=== PATIENT | female | born 1950 | race American Indian/Alaskan Native ===

== ENCOUNTER 2019-07-31 17:41 | Inpatient (IN) | payer MEDICARE ==
--- NOTE | 2019-07-31 20:13 | Emergency Department Report ---
ED General Adult HPI - General Chief complaint: Fall Stated complaint: (R) HIP PAIN Time Seen by Provider: 07/31/19 19:31 Source: patient, family, EMS ( EMS documentation not available at time of chart dictation ), RN notes reviewed Mode of arrival: Stretcher Limitations: Physical Limitation - History of Present Illness Initial comments: During the history and physical, I am chaperoned by nurse Lolly Garcia This is a 68-year-old female who is not known to this provider previously. Her primary care doctor is Dr. King. Her past medical history includes diabetes, GERD, hypertension, high cholesterol and arthritis. Patient presents to the ER after getting dizzy, and fall. She believes that she got dizzy at around 4:30 PM. She describes transient confusion, binocular blurry vision, not preceded by any painful event. After the fall, she landed on her right hip. She does not think that she hit her head or neck. She has sharp throbbing right sided hip pain, which increases with palpation and range of motion, and decreases with rest. She denies focal extremity weakness and or numbness at this time. Family thinks that the patient is slurring her speech when compared to baseline. -: Sudden Location: right, lower extremity Radiation: non-radiation Severity scale (0 -10): 0 Quality: aching Consistency: other Improves with: other Worsens with: other - Related Data Home Medications Medication Instructions Recorded Confirmed Last Taken Amitriptyline [Elavil] 10 mg PO QHS 11/13/13 11/13/13 11/12/13 20:00 Atenolol [Tenormin] 25 mg PO DAILY 11/13/13 11/13/13 11/12/13 20:00 diphenhydrAMINE [Benadryl] 25 mg PO QHS 11/13/13 11/13/13 11/08/13 20:00 hydroCHLOROthiazide 25 mg PO DAILY 11/13/13 11/13/13 11/12/13 20:00 [Hydrochlorothiazide] Previous Rx's Medication Instructions Recorded Last Taken Type traMADol [Ultram 50 MG tab] 50 mg PO Q6HR PRN #20 tablet 11/13/13 Unknown Rx Acetaminophen/Codeine [Tylenol #3] 1 tab PO Q6H PRN #10 tab 06/14/15 Unknown Rx Penicillin Vk [Veetids TAB] 500 mg PO Q6HR #28 tablet 06/14/15 Unknown Rx HYDROcodone/APAP 5-325 [[place] 1 - 2 each PO Q6HR PRN #14 tablet 11/11/15 Unknown Rx 5/325] levoFLOXacin [Levaquin] 750 mg PO QDAY #10 tablet 11/11/15 Unknown Rx Cyclobenzaprine [Flexeril] 10 mg PO TID PRN #15 tablet 05/16/16 Unknown Rx Allergies Allergy/AdvReac Type Severity Reaction Status Date / Time aspirin Allergy Rash Verified 11/13/13 18:16 lactase [From Dairy Aid] Allergy Unknown Verified 11/13/13 18:16 NSAIDS (Non-Steroidal Allergy Rash Verified 11/13/13 18:16 Anti-Inflamma ED Review of Systems ROS: Stated complaint: (R) HIP PAIN Other details as noted in HPI Constitutional: malaise. denies: fever Eyes: vision change. denies: eye discharge ENT: denies: throat pain, congestion Respiratory: denies: cough Cardiovascular: syncope, other (syncope versus near syncope) Gastrointestinal: denies: nausea, vomiting Genitourinary: denies: dysuria Musculoskeletal: arthralgia, myalgia Skin: denies: lesions Neurological: weakness, confusion Hematological/Lymphatic: denies: easy bleeding ED Past Medical Hx - Past Medical History Previous Medical History?: Yes Hx Hypertension: Yes Hx Diabetes: Yes Hx GERD: Yes Additional medical history: high cholesterol, arthritis - Surgical History Past Surgical History?: Yes Additional Surgical History: Bilateral tubal ligation. left knee - Social History Smoking Status: Never Smoker Substance Use Type: None - Medications Home Medications: Home Medications Medication Instructions Recorded Confirmed Last Taken Type Amitriptyline [Elavil] 10 mg PO QHS 11/13/13 11/13/13 11/12/13 20:00 History Atenolol [Tenormin] 25 mg PO DAILY 11/13/13 11/13/13 11/12/13 20:00 History diphenhydrAMINE [Benadryl] 25 mg PO QHS 11/13/13 11/13/13 11/08/13 20:00 History hydroCHLOROthiazide 25 mg PO DAILY 11/13/13 11/13/13 11/12/13 20:00 History [Hydrochlorothiazide] traMADol [Ultram 50 MG tab] 50 mg PO Q6HR PRN #20 tablet 11/13/13 Unknown Rx Acetaminophen/Codeine [Tylenol #3] 1 tab PO Q6H PRN #10 tab 06/14/15 Unknown Rx Penicillin Vk [Veetids TAB] 500 mg PO Q6HR #28 tablet 06/14/15 Unknown Rx HYDROcodone/APAP 5-325 [[place] 1 - 2 each PO Q6HR PRN #14 tablet 11/11/15 Unknown Rx 5/325] levoFLOXacin [Levaquin] 750 mg PO QDAY #10 tablet 11/11/15 Unknown Rx Cyclobenzaprine [Flexeril] 10 mg PO TID PRN #15 tablet 05/16/16 Unknown Rx ED Physical Exam - General Limitations: Language Barrier General appearance: alert, in no apparent distress, anxious, in distress - Head Head exam: Present: atraumatic, normocephalic - Eye Eye exam: Present: normal appearance, PERRL, EOMI, other (visual acuity intact to finger counting, color perception, reading at a close distance). Absent: nystagmus - ENT ENT exam: Present: normal exam, normal orophraynx, mucous membranes moist, normal external ear exam - Neck Neck exam: Present: normal inspection, full ROM. Absent: tenderness, meningismus - Respiratory Respiratory exam: Present: normal lung sounds bilaterally. Absent: respiratory distress - Cardiovascular Cardiovascular Exam: Present: regular rate, normal rhythm, normal heart sounds. Absent: bradycardia, tachycardia, irregular rhythm, systolic murmur, diastolic murmur, rubs, gallop - GI/Abdominal GI/Abdominal exam: Present: soft. Absent: distended, tenderness, guarding, rebound, rigid, pulsatile mass - Extremities Exam Extremities exam: Present: normal inspection, tenderness (there is right sided hip tenderness and proximal femur tenderness.), other (2+ pulses noted in the bilateral upper, lower extremities. There is no long bone tenderness. Musculoskeletal compartments are soft. The pelvis is stable.) - Back Exam Back exam: Present: normal inspection. Absent: tenderness, CVA tenderness (R), CVA tenderness (L), paraspinal tenderness, vertebral tenderness - Neurological Exam Neurological exam: Present: alert (there is past pointing noted in the bilateral upper extremities. No visual field cuts are noted.), oriented X3 (there is no pronator drift. There is normal left-sided yrxs-nt-xrmf. Patient cannot perfo rm right-sided xtbd-ku-xits secondary to pain.), other (there is no facial droop. The tongue is midline. Extraocular movements are intact bilaterally. Patient speaking in full complete sentences. Shoulder shrug is intact bilaterally. Hearing is grossly intact bilaterally. Visual acuity intact to finger counting and color perception at a close distance. 5/5 strength 4 extremities. Sensation intact to light touch in 4 extremities.) - Psychiatric Psychiatric exam: Present: normal affect, normal mood - Skin Skin exam: Present: warm, dry, intact, normal color. Absent: rash ED Course Vital Signs 07/31/19 07/31/19 07/31/19 18:35 18:46 18:52 Temperature 98 F Pulse Rate 81 Respiratory 25 H 25 H Rate Blood Pressure 182/88 O2 Sat by Pulse 96 96 96 Oximetry ED Medical Decision Making - Lab Data Result diagrams: 07/31/19 20:57 07/31/19 20:57 Vital Signs 07/31/19 07/31/19 07/31/19 18:35 18:46 18:52 Temperature 98 F Pulse Rate 81 Respiratory 25 H 25 H Rate Blood Pressure 182/88 O2 Sat by Pulse 96 96 96 Oximetry Lab Results 07/31/19 07/31/19 07/31/19 Range/Units 20:57 20:57 20:57 WBC 10.2 (4.5-11.0) K/mm3 RBC 4.82 (3.65-5.03) M/mm3 Hgb 12.7 (10.1-14.3) gm/dl Hct 39.8 (30.3-42.9) % MCV 83 (79-97) fl MCH 26 L (28-32) pg MCHC 32 (30-34) % RDW 14.8 (13.2-15.2) % Plt Count 200 (140-440) K/mm3 PT 12.8 (12.2-14.9) Sec. INR 0.97 (0.87-1.13) Thrombin Time 16.1 (15.1-19.6) Sec. Sodium 137 (137-145) mmol/L Potassium 4.1 (3.6-5.0) mmol/L Chloride 99.9 (98-107) mmol/L Carbon Dioxide 23 (22-30) mmol/L Anion Gap 18 mmol/L BUN 19 H (7-17) mg/dL Creatinine 0.8 (0.7-1.2) mg/dL Estimated GFR > 60 ml/min BUN/Creatinine Ratio 24 % Glucose 109 H (65-100) mg/dL POC Glucose (70-105) Calcium 9.4 (8.4-10.2) mg/dL Magnesium (1.7-2.3) mg/dL Total Bilirubin 0.30 (0.1-1.2) mg/dL AST 19 (5-40) units/L ALT 19 (7-56) units/L Alkaline Phosphatase 72 (35-129) units/L Total Creatine Kinase (30-135) units/L Troponin T < 0.010 (0.00-0.029) ng/mL Total Protein 7.2 (6.3-8.2) g/dL Albumin 4.3 (3.9-5) g/dL Albumin/Globulin Ratio 1.5 % TSH (0.270-4.200) mlU/mL Plasma/Serum Alcohol (0-0.07) % 07/31/19 07/31/19 07/31/19 Range/Units 20:57 20:57 20:57 WBC (4.5-11.0) K/mm3 RBC (3.65-5.03) M/mm3 Hgb (10.1-14.3) gm/dl Hct (30.3-42.9) % MCV (79-97) fl MCH (28-32) pg MCHC (30-34) % RDW (13.2-15.2) % Plt Count (140-440) K/mm3 PT (12.2-14.9) Sec. INR (0.87-1.13) Thrombin Time (15.1-19.6) Sec. Sodium (137-145) mmol/L Potassium (3.6-5.0) mmol/L Chloride (98-107) mmol/L Carbon Dioxide (22-30) mmol/L Anion Gap mmol/L BUN (7-17) mg/dL Creatinine (0.7-1.2) mg/dL Estimated GFR ml/min BUN/Creatinine Ratio % Glucose (65-100) mg/dL POC Glucose (70-105) Calcium (8.4-10.2) mg/dL Magnesium 1.80 (1.7-2.3) mg/dL Total Bilirubin (0.1-1.2) mg/dL AST (5-40) units/L ALT (7-56) units/L Alkaline Phosphatase (35-129) units/L Total Creatine Kinase 57 (30-135) units/L Troponin T (0.00-0.029) ng/mL Total Protein (6.3-8.2) g/dL Albumin (3.9-5) g/dL Albumin/Globulin Ratio % TSH 0.653 (0.270-4.200) mlU/mL Plasma/Serum Alcohol < 0.01 (0-0.07) % 07/31/19 Range/Units 22:11 WBC (4.5-11.0) K/mm3 RBC (3.65-5.03) M/mm3 Hgb (10.1-14.3) gm/dl Hct (30.3-42.9) % MCV (79-97) fl MCH (28-32) pg MCHC (30-34) % RDW (13.2-15.2) % Plt Count (140-440) K/mm3 PT (12.2-14.9) Sec. INR (0.87-1.13) Thrombin Time (15.1-19.6) Sec. Sodium (137-145) mmol/L Potassium (3.6-5.0) mmol/L Chloride (98-107) mmol/L Carbon Dioxide (22-30) mmol/L Anion Gap mmol/L BUN (7-17) mg/dL Creatinine (0.7-1.2) mg/dL Estimated GFR ml/min BUN/Creatinine Ratio % Glucose (65-100) mg/dL POC Glucose 91 (70-105) Calcium (8.4-10.2) mg/dL Magnesium (1.7-2.3) mg/dL Total Bilirubin (0.1-1.2) mg/dL AST (5-40) units/L ALT (7-56) units/L Alkaline Phosphatase (35-129) units/L Total Creatine Kinase (30-135) units/L Troponin T (0.00-0.029) ng/mL Total Protein (6.3-8.2) g/dL Albumin (3.9-5) g/dL Albumin/Globulin Ratio % TSH (0.270-4.200) mlU/mL Plasma/Serum Alcohol (0-0.07) % - EKG Data -: EKG Interpreted by Me EKG shows normal: sinus rhythm Rate: normal - EKG Data When compared to previous EKG there are: previous EKG unavailable 07/31/19 22:37 The EKG shows a sinus rhythm, 78 bpm, QTC is prolonged, there is a normal axis, there is an incomplete right bundle branch block, there is low voltage, the EKG is abnormal, the EKG is not consistent with STEMI - Radiology Data Radiology results: report reviewed, image reviewed Noncontrast CT scan of the brain is negative for acute disease. X-ray the chest, pelvis, right femur negative for acute disease - Medical Decision Making Differential diagnosis, including but not limited to: Orthostasis, vagal event, structural cardiac disease, transient ischemic attack, stroke, pneumonia, urinary tract infection, pelvic fracture, contusion, dislocation Assessment and plan: 68-year-old female with complaint of dizziness, syncope versus presyncope versus TIA, with right-sided hip pain. CT scan brain, cervical spine negative for acute disease. No fractures or dislocations noted. X-ray the chest unremarkable. Patient seen and evaluated by myself and stroke neurology, and was deemed not to be a TPA candidate. Her exam at this point time is not suggestive of a large vessel occlusion. Urinalysis is pending at this time, patient given Plavix, and she'll be admitted to the medical service for further evaluation and management. The case was presented to the Hospital physician, Dr. Malave, who has accepted the patient to his service. We discussed plan of care for admission with the family, who verb alizes understanding and whom are amenable to this plan of care. Critical care attestation.: If time is entered above; I have spent that time in minutes in the direct care of this critically ill patient, excluding procedure time. ED Disposition Clinical Impression: Stroke, Right hip pain, Fall Disposition: OP ADMIT IP TO THIS HOSP Is pt being admited?: Yes Condition: Good Referrals: PRIMARY CARE, [Primary Care Provider] - 3-5 Days
--- NOTE | 2019-07-31 21:05 | Cat Scan Report ---
CT head/brain wo con INDICATION / CLINICAL INFORMATION: 68 years Female; MAIN: Stroke symptoms-CODE STROKE!!! Call [phone]. TECHNIQUE: Routine CT head without contrast. All CT scans at this location are performed using CT dos e reduction for ALARA by means of automated exposure control. COMPARISON: None. FINDINGS: BRAIN / INTRACRANIAL CONTENTS: There may be a small lacunar infarct in the anterior gangliocapsular r egion on the vxyjv-vtd-npfmjulsnlzcl without diffusion imaging by MRI. Otherwise, no acute hemorrhage, mass effect, midline shift, hydrocephalus, or acute, large territori al infarct. No chronic infarct or atrophy appreciated. There are mild areas of decreased attenuation in the white matter of the cerebral hemispheres. These are nonspecific findings and may be related to microangiopathy (hypertension, diabetes, atheroscleros is), given the patient's age. CRANIOCERVICAL JUNCTION: No significant abnormality. ORBITS: No significant abnormality of visualized orbits. SINUSES / MASTOIDS: No significant abnormality the visualized paranasal sinuses or mastoid air cells. ADDITIONAL FINDINGS: None. IMPRESSION: 1. No focal mass, hemorrhage, hydrocephalus, or acute, large territorial infarct. This exam was performed as part of a code stroke protocol. The exam was completed on 07/31/2019 7:52 PM. The exam was reviewed at 7:[address] Falcon was notified at 7:39 PM. Signer Name: Mike Garcia MD, III Signed: 07/31/2019 9:00 PM Workstation Name: [facility] [id number]
--- NOTE | 2019-07-31 21:07 | Cat Scan Report ---
CT cervical spine wo con INDICATION / CLINICAL INFORMATION: 68 years Female; fall, confusion. TECHNIQUE: Axial CT images of the cervical spine were obtained. Sagittal and coronal reformatted images were pr oduced. All CT scans at this location are performed using CT dose reduction for ALARA by means of aut omated exposure control. COMPARISON: None available. FINDINGS: POST-SURGICAL CHANGES: None. ALIGNMENT: Normal cervical lordosis seen without significant scoliosis. VERTEBRAE: No signs of fracture. Vertebral bodies are grossly normal in height throughout. Moderate facet hypertrophy seen on the left at C4-5. Overall, there is no significant osseous foramin al narrowing. INTRAVERTEBRAL DISCS:Disc spaces are fairly well-maintained throughout without significant canal sten osis. Mild disc disease seen at various levels with no dominant herniation appreciated. PARASPINAL SOFT TISSUES: No significant abnormality. ADDITIONAL FINDINGS: None. IMPRESSION: 1. No signs of acute bony trauma to the cervical spine. Signer Name: Mike Garcia MD, III Signed: 07/31/2019 9:03 PM Workstation Name: [id number]
[2019-07-31 21:08] LABS: Hematocrit 39.8 % (30.3-42.9); Hemoglobin 12.7 gm/dl (10.1-14.3); Mean Corpuscular HGB Conc 32 % (30-34); Mean Corpuscular Volume 83 fl (79-97); Platelet Count 200 K/mm3 (140-440); Red Blood Count 4.82 M/mm3 (3.65-5.03); Red Cell Distribution Width 14.8 % (13.2-15.2)
--- NOTE | 2019-07-31 21:12 | Emergency Department Report ---
ED Neuro Deficit HPI - General Chief Complaint: Fall Stated Complaint: (R) HIP PAIN Time Seen by Provider: 07/31/19 19:31 Source: patient, family, EMS Mode of arrival: Stretcher Limitations: Language Barrier - History of Present Illness Initial Comments: [facility] Date of Service:07/31/2019 20:21:51 Impression: RO Acute Ischemic Stroke Comments: Episode of a fall after filling dizzy. The son feels that her speech is a bit slurred. R/o stroke. out of window for tpa and mild non disabling symptoms at this time. Discussed with son, agrees. Mechanism of Stroke: Not Clear Metrics: Last Known Well: 07/31/2019 16:30:00 [employer] Notification Time: 07/31/2019 20:21:07 Arrival Time: 07/31/2019 17:41:00 Stamp Time: 07/31/2019 20:21:51 Time First Login Attempt: 07/31/2019 20:25:20 Video Start Time: 07/31/2019 20:25:20 Symptoms: dizziness and fall. NIHSS Start Assessment Time: 07/31/2019 20:26:33 Patient is not a candidate for tPA. Patient was not deemed candidate for tPA thrombolytics because of Last Well Known Above 4.5 Hours. Video End Time: 07/31/2019 20:59:44 Advanced imaging was not obtained as the presentation was not suggestive of Large Vessel Occlusive Disease. ER Physician notified of the decision on thrombolytics management on 07/31/2019 21:00:00 Our recommendations are outlined below. Recommendations: Activate Stroke Protocol Admission/Order Set Stroke/Telemetry Floor Neuro Checks Bedside Swallow Eval DVT Prophylaxis IV Fluids, Normal Saline Head of Bed Below 30 Degrees Euglycemia and Avoid Hyperthermia (PRN Acetaminophen) Initiate Aspirin Disposition: admit for further workup Sign Out: Discussed with Emergency Department Provider History of Present Illness: Patient is a 68 year old Female. Patient was brought by EMS for symptoms of dizziness and fall. The patient was in the kitchen went to the living room and then fell. She described that she fell dizzy. Denies any weakness, numbness, vision loss. However, she does have right leg pain, from the call. She has been feeling dizzy before and intermittently CT head was reviewed, no acute findings per rad read. Examination: 1A: Level of Consciousness - Alert; keenly responsive + 0 1B: Ask Month and Age - Both Questions Right + 0 1C: Blink Eyes & Squeeze Hands - Performs Both Tasks + 0 2: Test Horizontal Extraocular Movements - Normal + 0 3: Test Visual Alva - No Visual Loss + 0 4: Test Facial Palsy (Use Grimace if Obtunded) - Normal symmetry + 0 5A: Test Left Arm Motor Drift - No Drift for 10 Seconds + 0 5B: Test Right Arm Motor Drift - No Drift for 10 Seconds + 0 6A: Test Left Leg Motor Drift - No Drift for 5 Seconds + 0 6B: Test Right Leg Motor Drift - Drift, but doesn't hit bed + 1 7: Test Limb Ataxia (FNF/Heel-Campos) - No Ataxia + 0 8: Test Sensation - Normal; No sensory loss + 0 9: Test Language/Aphasia - Normal; No aphasia + 0 10: Test Dysarthria - Mild-Moderate Dysarthria: Slurring but can be understood + 1 11: Test Extinction/Inattention - No abnormality + 0 NIHSS Score: 2 Patient was informed the Neurology Consult would happen via TeleHealth consult by way of interactive audio and video telecommunications and consented to receiving care in this manner. Due to the immediate potential for life-threatening deterioration due to underlying acute neurologic illness, I spent 35 minutes providing critical care. This time includes time for face to face visit via telemedicine, review of medical records, imaging studies and discussion of findings with providers, the patient and/or family. Dr Ta Ge [facility] - Related Data Home Medications: Home Medications Medication Instructions Recorded Confirmed Last Taken Amitriptyline [Elavil] 10 mg PO QHS 11/13/13 11/13/13 11/12/13 20:00 Atenolol [Tenormin] 25 mg PO DAILY 11/13/13 11/13/13 11/12/13 20:00 diphenhydrAMINE [Benadryl] 25 mg PO QHS 11/13/13 11/13/13 11/08/13 20:00 hydroCHLOROthiazide 25 mg PO DAILY 11/13/13 11/13/13 11/12/13 20:00 [Hydrochlorothiazide] Previous Rx's Medication Instructions Recorded Last Taken Type traMADol [Ultram 50 MG tab] 50 mg PO Q6HR PRN #20 tablet 11/13/13 Unknown Rx Acetaminophen/Codeine [Tylenol #3] 1 tab PO Q6H PRN #10 tab 06/14/15 Unknown Rx Penicillin Vk [Veetids TAB] 500 mg PO Q6HR #28 tablet 06/14/15 Unknown Rx HYDROcodone/APAP 5-325 [[place] 1 - 2 each PO Q6HR PRN #14 tablet 11/11/15 Unknown Rx 5/325] levoFLOXacin [Levaquin] 750 mg PO QDAY #10 tablet 11/11/15 Unknown Rx Cyclobenzaprine [Flexeril] 10 mg PO TID PRN #15 tablet 05/16/16 Unknown Rx Allergies/Adverse Reactions: Allergies Allergy/AdvReac Type Severity Reaction Status Date / Time aspirin Allergy Rash Verified 11/13/13 18:16 lactase [From Dairy Aid] Allergy Unknown Verified 11/13/13 18:16 NSAIDS (Non-Steroidal Allergy Rash Verified 11/13/13 18:16 Anti-Inflamma ED Review of Systems ROS: Stated complaint: (R) HIP PAIN Other details as noted in HPI ED Past Medical Hx - Past Medical History Previous Medical History?: Yes Hx Hypertension: Yes Hx Diabetes: Yes Hx GERD: Yes Additional medical history: high cholesterol, arthritis - Surgical History Past Surgical History?: Yes Additional Surgical History: Bilateral tubal ligation. left knee - Social History Smoking Status: Never Smoker Substance Use Type: None - Medications Home Medications: Home Medications Medication Instructions Recorded Confirmed Last Taken Type Amitriptyline [Elavil] 10 mg PO QHS 11/13/13 11/13/13 11/12/13 20:00 History Atenolol [Tenormin] 25 mg PO DAILY 11/13/13 11/13/13 11/12/13 20:00 History diphenhydrAMINE [Benadryl] 25 mg PO QHS 11/13/13 11/13/13 11/08/13 20:00 History hydroCHLOROthiazide 25 mg PO DAILY 11/13/13 11/13/13 11/12/13 20:00 History [Hydrochlorothiazide] traMADol [Ultram 50 MG tab] 50 mg PO Q6HR PRN #20 tablet 11/13/13 Unknown Rx Acetaminophen/Codeine [Tylenol #3] 1 tab PO Q6H PRN #10 tab 06/14/15 Unknown Rx Penicillin Vk [Veetids TAB] 500 mg PO Q6HR #28 tablet 06/14/15 Unknown Rx HYDROcodone/APAP 5-325 [[place] 1 - 2 each PO Q6HR PRN #14 tablet 11/11/15 Unknown Rx 5/325] levoFLOXacin [Levaquin] 750 mg PO QDAY #10 tablet 11/11/15 Unknown Rx Cyclobenzaprine [Flexeril] 10 mg PO TID PRN #15 tablet 05/16/16 Unknown Rx ED Neuro Physical Exam - General Limitations: Language Barrier Suspected Stroke: Yes - NIHSS Assessment Interval: Baseline 1a. Level of Consciousness: alert/keenly responsive 1b. LOC Questions: answers both correctly 1c. LOC Commands: performs tasks correctly 2. Best Gaze: normal 3. Visual: no visual loss 4. Facial Palsy: normal symmetrical movement 5b. Motor Arm Right: no drift 5a. Motor Arm Left: no drift 6a. Motor Leg Left: no drift 6b. Motor Leg Right: drift 7. Limb Ataxia: absent 8. Sensory: normal 9. Best Language: no aphasia 10. Dysarthria: mild/moderate dysarthria 11. Extinction/Inattention: no abnormality (right leg wekaness, secondary to pain. slurred speech per son) Total Score: 2 Stroke Severity: Minor Stroke ED Course Vital Signs 07/31/19 07/31/19 07/31/19 18:35 18:46 18:52 Temperature 98 F Pulse Rate 81 Respiratory 25 H 25 H Rate Blood Pressure 182/88 O2 Sat by Pulse 96 96 96 Oximetry - Lab Data Result diagrams: 07/31/19 20:57 Lab Results 07/31/19 Range/Units 20:57 WBC 10.2 (4.5-11.0) K/mm3 RBC 4.82 (3.65-5.03) M/mm3 Hgb 12.7 (10.1-14.3) gm/dl Hct 39.8 (30.3-42.9) % MCV 83 (79-97) fl MCH 26 L (28-32) pg MCHC 32 (30-34) % RDW 14.8 (13.2-15.2) % Plt Count 200 (140-440) K/mm3 Critical care attestation.: If time is entered above; I have spent that time in minutes in the direct care of this critically ill patient, excluding procedure time. ED Disposition Clinical Impression: Stroke Disposition: DC-[id number] OP ADMIT IP TO THIS HOSP Is pt being admited?: Yes Condition: Stable Referrals: PRIMARY CARE, [Primary Care Provider] - 3-5 Days
[2019-07-31 21:16] LABS: INR 0.97 (0.87-1.13)
[2019-07-31 21:25] LABS: Alanine Aminotransferase 19 units/L (7-56); Albumin 4.3 g/dL (3.9-5); BUN/Creatinine Ratio 24; Blood Urea Nitrogen 19 mg/dL (7-17); Calcium 9.4 mg/dL (8.4-10.2); Hemolysis Index 5
[2019-07-31 21:32] LABS: Thrombin Time 16.1 Sec. (15.1-19.6)
--- NOTE | 2019-07-31 22:24 | XRay Report ---
CHEST 1 VIEW INDICATION / CLINICAL INFORMATION: near syncope vs tia. COMPARISON: None available. FINDINGS: SUPPORT DEVICES: None. HEART / MEDIASTINUM: No significant abnormality. LUNGS / PLEURA: No significant pulmonary or pleural abnormality.. No pneumothorax. ADDITIONAL FINDINGS: No significant additional findings. IMPRESSION: 1. No acute findings. Signer Name: David Kolb MD Signed: 07/31/2019 10:20 PM Workstation Name: [id number]
[2019-07-31] MEDS ORDERED: MORPHINE 4 MG/1 ML INJ IV ONE ×2 (22:27→23:12)
[2019-07-31] MEDS ORDERED: CLOPIDOGREL 75 MG TAB PO ONE (22:27)
--- NOTE | 2019-07-31 22:27 | XRay Report ---
PELVIS ONE VIEW INDICATION / CLINICAL INFORMATION: fall hip pain COMPARISON: None available. FINDINGS: BONES / JOINT(S): No acute fracture or subluxation. There is degenerative change in the hips left gre ater than right. SOFT TISSUES: No significant abnormality. ADDITIONAL FINDINGS: None. Signer Name: David Kolb MD Signed: 07/31/2019 10:22 PM Workstation Name: [id number]
--- NOTE | 2019-07-31 22:30 | XRay Report ---
RIGHT FEMUR 2 VIEWS INDICATION / CLINICAL INFORMATION: traumatic leg pain COMPARISON: None available. FINDINGS: BONES / JOINT(S): No acute fracture or subluxation. There is degenerative change in the right hip and in the right knee. SOFT TISSUES: No significant abnormality. ADDITIONAL FINDINGS: None. Signer Name: David Kolb MD Signed: 07/31/2019 10:26 PM Workstation Name: [id number]
[2019-07-31] MEDS ORDERED: hydrALAZINE 20 MG/1 ML INJ IV ONE (22:43)
[2019-07-31] MEDS ORDERED: MAGNESIUM HYDROXIDE (MOM) ORAL LIQD UDC PO PRN (22:43)
[2019-07-31] MEDS ORDERED: MORPHINE 4 MG/1 ML INJ IV PRN (22:43)
[2019-07-31] MEDS ORDERED: ONDANSETRON 4 MG/2 ML INJ IV PRN (22:43)
[2019-07-31] MEDS ORDERED: PROMETHAZINE 25 MG RECT SUPP PR PRN (22:43)
[2019-07-31] MEDS ORDERED: METOCLOPRAMIDE 10 MG TAB PO PRN (22:43)
[2019-07-31] MEDS ORDERED: ACETAMINOPHEN 325 MG TAB PO PRN (22:43)
--- NOTE | 2019-07-31 23:00 | History and Physical Report ---
History of Present Illness Date of examination: 07/31/19 Date of admission: Chief complaint: Slurred speech and extremity weakness History of present illness: 68-year-old female with known history of diabetes mellitus, hypertension, hyperlipidemia brought into the emergency room today having had an episode of slurred speech at home and also having a fall. She suddenly felt dizzy and fell backwards hitting the back of her head. She denies any loss of consciousness and denies any blurry vision. She has been having right hip pain since the fall. She denies any chest pain or shortness of breath, no nausea vomiting, no fever or chills. Patient was evaluated in the emergency room a CT scan of the brain was negative. Patient was evaluated by telemetry neurology and she was not a candidate for TPA. She was started on oral Plavix and was being admitted to be evaluated for CVA. Past History Past Medical History: diabetes, hypertension, hyperlipidemia Past Surgical History: Other (Bilateral tubal ligation in the past) Social history: no significant social history Family history: CAD, hypertension Medications and Allergies Allergies Allergy/AdvReac Type Severity Reaction Status Date / Time aspirin Allergy Rash Verified 11/13/13 18:16 lactase [From Dairy Aid] Allergy Unknown Verified 11/13/13 18:16 NSAIDS (Non-Steroidal Allergy Rash Verified 11/13/13 18:16 Anti-Inflamma Home Medications Medication Instructions Recorded Confirmed Last Taken Type Amitriptyline [Elavil] 10 mg PO QHS 11/13/13 11/13/13 11/12/13 20:00 History Atenolol [Tenormin] 25 mg PO DAILY 11/13/13 11/13/13 11/12/13 20:00 History diphenhydrAMINE [Benadryl] 25 mg PO QHS 11/13/13 11/13/13 11/08/13 20:00 History hydroCHLOROthiazide 25 mg PO DAILY 11/13/13 11/13/13 11/12/13 20:00 History [Hydrochlorothiazide] traMADol [Ultram 50 MG tab] 50 mg PO Q6HR PRN #20 tablet 11/13/13 Unknown Rx Acetaminophen/Codeine [Tylenol #3] 1 tab PO Q6H PRN #10 tab 06/14/15 Unknown Rx Penicillin Vk [Veetids TAB] 500 mg PO Q6HR #28 tablet 06/14/15 Unknown Rx HYDROcodone/APAP 5-325 [[place] 1 - 2 each PO Q6HR PRN #14 tablet 11/11/15 Unknown Rx 5/325] levoFLOXacin [Levaquin] 750 mg PO QDAY #10 tablet 11/11/15 Unknown Rx Cyclobenzaprine [Flexeril] 10 mg PO TID PRN #15 tablet 05/16/16 Unknown Rx Review of Systems Neurological: change in speech Exam - Constitutional Vitals: Temp Pulse Resp BP Pulse Ox 98 F 81 25 H 182/88 96 07/31/19 18:46 07/31/19 18:46 07/31/19 18:52 07/31/19 18:46 07/31/19 18:52 - EENT Eyes: Present: PERRL, EOM intact ENT: hearing intact, clear oral mucosa, dentition normal - Neck Neck: Present: supple, normal ROM - Respiratory Respiratory: bilateral: CTA - Cardiovascular Rhythm: regular Heart Sounds: Present: S1 & S2 - Extremities Extremities: no ischemia, No edema Peripheral Pulses: within normal limits - Abdominal General gastrointestinal: Present: soft, non-tender, non-distended - Integumentary Integumentary: Present: clear, warm, dry - Musculoskeletal Musculoskeletal: strength equal bilaterally, other - Psychiatric Psychiatric: appropriate mood/affect, intact judgment & insight - Neurologic Neurologic: CNII-XII intact, moves all extremities (Right hip pain) Results - Labs CBC & Chem 7: 07/31/19 20:57 07/31/19 20:57 Labs: Abnormal lab results 07/31/19 07/31/19 Range/Units 20:57 20:57 MCH 26 L (28-32) pg BUN 19 H (7-17) mg/dL Glucose 109 H (65-100) mg/dL Assessment and Plan - Patient Problems (1) Stroke Current Visit: Yes Status: Acute Plan to address problem: Patient admitted with slurred speech today. Will monitor neurological status closely. Patient will be placed on daily Plavix. Was scheduled for carotid Doppler and MRI of the brain. Will request neurology consult in the a.m. (2) Fall Current Visit: Yes Status: Acute Plan to address problem: Will place on fall precautions. (3) Right hip pain Current Visit: Yes Status: Acute Plan to address problem: Patient has had pain on the right hip status post fall today. X-ray of the right he still pending aside during this dictation. We will place on PRN analgesic medication. (4) Diabetes mellitus Current Visit: Yes Status: Acute Plan to address problem: We will monitor Accu-Cheks and continue her routine home medications. (5) DVT prophylaxis Current Visit: Yes Status: Acute Plan to address problem: Patient placed on subcutaneous heparin (6) Full code status Current Visit: Yes Status: Acute
[2019-07-31] MEDS ORDERED: DEXTROSE 50% IN WATER (25GM) 50 ML SYRINGE IV PRN (23:16)
[2019-07-31] MEDS ORDERED: MORPHINE 4 MG/1 ML INJ ONE (23:21)
[2019-07-31] MEDS ORDERED: hydrALAZINE 20 MG/1 ML INJ ONE (23:44)
[2019-08-01 03:14] LABS: Bilirubin,Urine NEG (Negative); Blood,Urine NEG (Negative); Color,Urine Straw (Yellow); Mucus,Urine FEW /HPF; Protein,Urine <15 mg/dL mg/dL (Negative); Urobilinogen,Urine < 2.0 mg/dL (<2.0)
[2019-08-01] MEDS: INSULIN REGULAR, HUMAN 100 UNITS/1 ML SUB-Q SCH ×4 (08:00→21:29)
[2019-08-01 08:03] LABS: Chol/HDL Ratio 2.33 %
--- NOTE | 2019-08-01 14:28 | Consultation ---
Past History Past Medical History: diabetes, hypertension, hyperlipidemia Past Surgical History: Other (Bilateral tubal ligation in the past) Social history: no significant social history Family history: CAD, hypertension Medications and Allergies Allergies Allergy/AdvReac Type Severity Reaction Status Date / Time aspirin Allergy Rash Verified 11/13/13 18:16 lactase [From Dairy Aid] Allergy Unknown Verified 11/13/13 18:16 NSAIDS (Non-Steroidal Allergy Rash Verified 11/13/13 18:16 Anti-Inflamma Home Medications Medication Instructions Recorded Confirmed Last Taken Type Amitriptyline [Elavil] 10 mg PO QHS 11/13/13 08/01/19 1 Day Ago History ~07/31/19 Atenolol [Tenormin] 25 mg PO DAILY 11/13/13 08/01/19 1 Day Ago History ~07/31/19 diphenhydrAMINE [Benadryl] 25 mg PO QHS 11/13/13 08/01/19 1 Day Ago History ~07/31/19 hydroCHLOROthiazide 25 mg PO DAILY 11/13/13 08/01/19 1 Day Ago History [Hydrochlorothiazide] ~07/31/19 traMADoL [Ultram 50 MG tab] 50 mg PO Q6HR PRN #20 tablet 11/13/13 08/01/19 1 Day Ago Rx ~07/31/19 Acetaminophen/Codeine [Tylenol #3] 1 tab PO Q6H PRN #10 tab 06/14/15 08/01/19 1 Day Ago Rx ~07/31/19 Penicillin Vk [Veetids TAB] 500 mg PO Q6HR #28 tablet 06/14/15 08/01/19 1 Day Ago Rx ~07/31/19 HYDROcodone/APAP 5-325 [[place] 1 - 2 each PO Q6HR PRN #14 tablet 11/11/15 08/01/19 1 Day Ago Rx 5/325] ~07/31/19 levoFLOXacin [Levaquin] 750 mg PO QDAY #10 tablet 11/11/15 08/01/19 1 Day Ago Rx ~07/31/19 Cyclobenzaprine [Flexeril] 10 mg PO TID PRN #15 tablet 05/16/16 08/01/19 1 Day Ago Rx ~07/31/19 Active Meds: Active Medications Acetaminophen (Tylenol) 650 mg PO Q4H PRN PRN Reason: Pain, Mild (1-3) Bisacodyl (Dulcolax) 10 mg [place] QDAY PRN PRN Reason: Constipation Dextrose (D50w (25gm) Syringe) 50 ml IV Q30MIN PRN; Protocol PRN Reason: Hypoglycemia Insulin Human Regular (Humulin R) 0 units SUB-Q ACHS [facility]; Protocol Last Admin: 08/01/19 11:30 Dose: 3 units Documented by: Magnesium Hydroxide (Milk Of Magnesia) 30 ml PO Q4H PRN PRN Reason: Constipation Metoclopramide HCl (Reglan) 10 mg PO Q6H PRN PRN Reason: Nausea And Vomiting Morphine Sulfate (Morphine) 4 mg IV Q4H PRN PRN Reason: Pain , Severe (7-10) Last Admin: 08/01/19 09:41 Dose: 4 mg Documented by: Ondansetron HCl (Zofran) 4 mg IV Q8H PRN PRN Reason: Nausea And Vomiting Promethazine HCl (Phenergan) 25 mg [place] Q6H PRN PRN Reason: Nausea And Vomiting Sodium Chloride (Sodium Chloride Flush Syringe 10 Ml) 10 ml IV PRN PRN PRN Reason: LINE FLUSH Physical Examination - Vital Signs Vital Signs: Vital Signs Pulse Ox 96 07/31/19 18:35 Results - Laboratory Findings CBC and BMP: 07/31/19 20:57 07/31/19 20:57 Abnormal Lab Findings: Abnormal Labs 07/31/19 07/31/19 08/01/19 20:57 20:57 06:26 MCH 26 L BUN 19 H Glucose 109 H POC Glucose Triglycerides 162 H 08/01/19 08/01/19 08:05 11:50 MCH BUN Glucose POC Glucose 109 H 208 H Triglycerides Assessment and Plan 68 YEAR OLD FEMALE WITH HISTORY OF HYPERTENSION,DIABETES AND HISTORY OF HEARING IMPAIREMNT AND EPISODES OF VERTIGO OFF AND ON FOR MORE THAN 20 YEARS WHO DEVELOPED AN EPISODE OF DIZZINESS WHEN SHE FELL BACKWARD ON 07/31/2019. PATIENT IS SURE THAT SHE DID NOT LOSE CONSCIOUSNESS AND DID NOT HAVE ANY SPEECH DIFFICULTY. PATIENT ALSO HAS HISTORY OF TINNITUS WHICH HAS IMPROVED SIGNIFICANTLY AFTER SHE WAS GIVEN HEARING AID BY ENT.SHE ALSO HAS HISTORY OF HEARING IMPAIRMENT MORE ON THE RT SIDE THAN LEFT.ALSO HAS HISTORY OF LIGHT HEADEDNESS ON RISING QUICKLY FROM SITTING AND LYING POSITION. SHE STATES SOME TIME THE VERTIGO/DIZZINESS DEPEND ON CHANGING HEAD POSITION TOO QUICKLY. WORK UP AFTER ADMISSION INCLUDING CT SCAN OF THE HEAD DID NOT SHOW ANY ACUTE INFARCT OR HEMORRHAGE.HER EPISODES OF VERTIGO ARE NOT ASSOCIATED WITH VOMIT TINGMECLIZINE PHYSICAL EXAMINATION. GENERAL- IN NO ACUTE DISTRESS. PATIENT IS ALERT AND APPROPRIATE, HAS INSIGHT INTO HER CONDITION AND ANSWERS QUESTIONS APPROPRIATELY. HEART-NORMAL RATE AND RHYTHM CAROTIDS-BOTH PALPABLE, CRANIAL NERVES- PUPILS REACT TO LIGHT. EXTRA OCULAR MOVEMENTS ARE WITH IN NORMAL LIMIT.HAS DECREASED HEARING IN BOTH EARS RT MORE THAN THE LEFT. AC MORE THAN BC AND RIVERA IS LATERALIZED TO THE LEFT.OTHER CRANIAL NERVES ARE WITH IN NORMAL LIMIT. MOTOR- NORMAL STRENGTH IN ALL FOUR EXTREMITIES WITH OUT ANY ASYMMETRY. COORDINATION- NORMAL REFLEXES- REFLEXES ARE NORMAL IN ALL FOUR EXTREMITIES WITH BILATERAL DOWN GOING TOES SENSORY- DECREASED SENSATION TO PIN PRICK AND LIGHT TOUCH IN BOTH FEET UP TO ABOUT TWO INCHES INTO THE LEGS. BARANE'S MANUVER- POSITIVE ON THE RIGHT AND MILD POSITIVE ON THE LEFT. IMPRESSION. 1. BENIGN POSITIONAL VERTIGO 2.ORTHOSTATIC DIZZINESS 3. EARLY DIABETIC PERIPHERAL NEUROPATHY RECOMMEND. 1. MECLIZINE 25 MG PO TID 2. DRINK PLENTY OF WATER AND RISE SLOWLY FROM SITTING AND LYING POSITION 3. USE HEARING AID REGULARLY
[2019-08-01] MEDS ORDERED: MECLIZINE 25 MG TAB PO PRN (14:29)
[2019-08-01] MEDS: CYCLOBENZAPRINE 10 MG TAB PO PRN (16:01)
[2019-08-01] MEDS: MECLIZINE 25 MG TAB PO SCH ×2 (16:01→21:30)
--- NOTE | 2019-08-01 16:20 | Progress Note ---
Assessment and Plan Assessment and plan: 68-year-old woman who presents to the hospital after multiple episodes of dizziness and syncope. Syncope/transient autonomic imbalance Most likely due to benign positional vertigo, discussed with neurologist. -She denies focal weakness or slurred speech. Reassured patient that some slurred speech after waking up from a syncopal episode is expected, as patient admits to being drowsy at that time. -Meclizine as needed, advised to drink plenty of water, to rise from sitting and lying positions slowly. And to use hearing aid regularly. She is on a lot of sedating medications which include Tylenol 3, amitriptyline, Flexeril, Benadryl, [place] and tramadol. We will hold all of these -Obtain echo and carotid Dopplers, obtain orthostatic vital signs Right hip pain X-rays are negative, patient states that she cannot bear weight on her right hip. Will obtain CT of the hip. Trauma imaging is negative, she complained of neck pain but CT of her C-spine was negative. Most likely soft tissue damage, pain meds as needed. Hypertensive urgency Continue BP meds, Diabetes Sliding scale DVT prophylaxis Early ambulation and Lovenox History Interval history: Complaining of neck pain, but has full range of motion her neck Complaining of right hip pain, states that she is unable to bear weight on the right lower extremity. Review of systems Constitutional: No fevers, no malaise, no joint pains CVS: No chest pain, no orthopnea, no pedal edema GI: No abdominal pain, no diarrhea, no vomiting, no constipation Respiratory: No shortness of breath, no wheezing, no coughing Hospitalist Physical - Physical exam Narrative exam: General.: Appears well, no distress, nontoxic HEENT: Moist mucous membranes, extraocular muscles intact, no lymphadenopathy Neck: supple Cardiac: S1-S2 heard Lungs: clear to auscultation bilaterally Abdomen: soft , nontender, nondistended, bowel sounds positive Extremities: no edema clubbing or cyanosis Skin: no rash or lesions Neurologic: no gross focal deficits Psych: calm, and cooperative - Constitutional Vitals: Temp Pulse Resp BP Pulse Ox 97.1 F L 88 19 127/69 96 08/01/19 08:54 08/01/19 10:00 08/01/19 10:00 08/01/19 09:39 08/01/19 12:33 Results - Labs CBC & Chem 7: 07/31/19 20:57 07/31/19 20:57 Labs: Laboratory Last Values WBC 10.2 K/mm3 (4.5-11.0) 07/31/19 20:57 RBC 4.82 M/mm3 (3.65-5.03) 07/31/19 20:57 Hgb 12.7 gm/dl (10.1-14.3) 07/31/19 20:57 Hct 39.8 % (30.3-42.9) 07/31/19 20:57 MCV 83 fl (79-97) 07/31/19 20:57 MCH 26 pg (28-32) L 07/31/19 20:57 MCHC 32 % (30-34) 07/31/19 20:57 RDW 14.8 % (13.2-15.2) 07/31/19 20:57 Plt Count 200 K/mm3 (140-440) 07/31/19 20:57 PT 12.8 Sec. (12.2-14.9) 07/31/19 20:57 INR 0.97 (0.87-1.13) 07/31/19 20:57 Thrombin Time 16.1 Sec. (15.1-19.6) 07/31/19 20:57 Sodium 137 mmol/L (137-145) 07/31/19 20:57 Potassium 4.1 mmol/L (3.6-5.0) 07/31/19 20:57 Chloride 99.9 mmol/L (98-107) 07/31/19 20:57 Carbon Dioxide 23 mmol/L (22-30) 07/31/19 20:57 Anion Gap 18 mmol/L 07/31/19 20:57 BUN 19 mg/dL (7-17) H 07/31/19 20:57 Creatinine 0.8 mg/dL (0.7-1.2) 07/31/19 20:57 Estimated GFR > 60 ml/min 07/31/19 20:57 BUN/Creatinine Ratio 24 % 07/31/19 20:57 Glucose 109 mg/dL (65-100) H 07/31/19 20:57 POC Glucose 208 (70-105) H 08/01/19 11:50 Calcium 9.4 mg/dL (8.4-10.2) 07/31/19 20:57 Magnesium 1.80 mg/dL (1.7-2.3) 07/31/19 20:57 Total Bilirubin 0.30 mg/dL (0.1-1.2) 07/31/19 20:57 AST 19 units/L (5-40) 07/31/19 20:57 ALT 19 units/L (7-56) 07/31/19 20:57 Alkaline Phosphatase 72 units/L (35-129) 07/31/19 20:57 Total Creatine Kinase 57 units/L (30-135) 07/31/19 20:57 Troponin T < 0.010 ng/mL (0.00-0.029) 07/31/19 20:57 Total Protein 7.2 g/dL (6.3-8.2) 07/31/19 20:57 Albumin 4.3 g/dL (3.9-5) 07/31/19 20:57 Albumin/Globulin Ratio 1.5 % 07/31/19 20:57 Triglycerides 162 mg/dL (2-149) H 08/01/19 06:26 Cholesterol 126 mg/dL (50-199) 08/01/19 06:26 LDL Cholesterol Direct 64 mg/dL (50-130) 08/01/19 06:26 HDL Cholesterol 54 mg/dL (40-59) 08/01/19 06:26 Cholesterol/HDL Ratio 2.33 % 08/01/19 06:26 TSH 0.653 mlU/mL (0.270-4.200) 07/31/19 20:57 Urine Color Straw (Yellow) 07/31/19 23:30 Urine Turbidity Clear (Clear) 07/31/19 23:30 Urine pH 7.0 (5.0-7.0) 07/31/19 23:30 Ur Specific [place] 1.012 (1.003-1.030) 07/31/19 23:30 Urine Protein <15 mg/dl mg/dL (Negative) 07/31/19 23:30 Urine Glucose (UA) Neg mg/dL (Negative) 07/31/19 23:30 Urine Ketones Neg mg/dL (Negative) 07/31/19 23:30 Urine Blood Neg (Negative) 07/31/19 23:30 Urine Nitrite Neg (Negative) 07/31/19 23:30 Urine Bilirubin Neg (Negative) 07/31/19 23:30 Urine Urobilinogen < 2.0 mg/dL (<2.0) 07/31/19 23:30 Ur Leukocyte Esterase Neg (Negative) 07/31/19 23:30 Urine WBC (Auto) 0.0 /HPF (0.0-6.0) 07/31/19 23:30 Urine RBC (Auto) 1.0 /HPF (0.0-6.0) 07/31/19 23:30 Urine Mucus Few /HPF 07/31/19 23:30 Plasma/Serum Alcohol < 0.01 % (0-0.07) 07/31/19 20:57 Active Medications - Current Medications Current Medications: Generic Name Dose Route Start Last Admin Trade Name Freq PRN Reason Stop Dose Admin Acetaminophen 650 mg 07/31/19 22:43 08/01/19 16:01 Tylenol PO 650 mg Q4H PRN Administration Pain, Mild (1-3) Bisacodyl 10 mg 07/31/19 22:43 Dulcolax [place] QDAY PRN Constipation Cyclobenzaprine HCl 5 mg 08/01/19 14:29 08/01/19 16:01 Flexeril PO 5 mg Q8H PRN Administration Muscle Spasm Dextrose 50 ml 07/31/19 23:16 D50w (25gm) Syringe IV Q30MIN PRN Hypoglycemia Protocol Insulin Human Regular 0 units 08/01/19 07:30 08/01/19 11:30 Humulin R SUB-Q 3 units ACHS MANDO Administration Protocol Magnesium Hydroxide 30 ml 07/31/19 22:43 Milk Of Magnesia PO Q4H PRN Constipation Meclizine HCl 25 mg 08/01/19 14:29 Antivert PO Q8H PRN Vertigo Meclizine HCl 25 mg 08/01/19 16:00 08/01/19 16:01 Antivert PO 25 mg Q8HR MANDO Administration Metoclopramide HCl 10 mg 07/31/19 22:43 Reglan PO Q6H PRN Nausea And Vomiting Morphine Sulfate 4 mg 07/31/19 22:43 08/01/19 09:41 Morphine IV 4 mg Q4H PRN Administration Pain , Severe (7-10) Ondansetron HCl 4 mg 11/12/19 22:43 Zofran IV Q8H PRN Nausea And Vomiting Promethazine HCl 25 mg 07/31/19 22:43 Phenergan MI Q6H PRN Nausea And Vomiting Sodium Chloride 10 ml 07/31/19 22:43 Sodium Chloride Flush Syringe 10 Ml IV PRN PRN LINE FLUSH Nutrition/Malnutrition Assess - Dietary Evaluation Nutrition/Malnutrition Findings: Nutrition Notes Start: 08/01/19 10:31 Freq: Status: Active Protocol: Document 08/01/19 10:31 CT (Rec: 08/01/19 11:20 CT [id number]) Co-Sign 08/01/19 10:31 LP Nutrition Notes Need for Assessment generated from: MD Order Initial or Follow up Assessment Current Diagnosis Diabetes,Hypertension,Stroke, Hyperlipidemia Other Pertinent Diagnosis GERD, Arthritis, s/p bilat tubal ligtigation Current Diet Cardiac/Consistent CHO Labs/Tests POC Glu 109 Triglycerides 162 Pertinent Medications Dulcolax Humulin Milk of Magnesia Reglan Height 5 ft 2 in Weight 59.4 kg Usual Body Weight 65.771 kg [place] Body Weight (kg) 50.00 BMI 23.9 Intake Prior to Admission Good Weight change and time frame 10% weight loss within 2 months Weight Status Appropriate Subjective/Other Information Consult for nutrition recommendations and diet education. Pt was alert and wanted the education on a cardiac, diabetic diet. Noted that pt has dentures. Pt states some pain when swallowing. Pt report of milk allergy resulting in runny nose, watery eyes and sore throat. Pt states that she usually snacks during the day and only has one large meal in the evening due to not having a large appetite. Pt was given education on heart healthy eating while counting carbohydrates. Percent of energy/protein needs met: 91% energy / 85% protein Burn Absent Trauma Absent GI Symptoms None Difficulty In Swallowing Food Allergy Yes Current % PO Fair (50-74%) Minimum of two criteria No Interpretation of Weight Loss (non- 5% in 1 month severe) #3 Nutrition Diagnosis Food and nutrition-related knowledge deficit Etiology no prior knowledge As Evidenced by Signs and Symptoms pt wanting education on a cardiac, consistent CHO diet #1 Nutrition Diagnosis Inadequate oral intake Etiology Pt consumed 60% of breakfast tray As Evidenced by Signs and Symptoms Pt report of swallowing difficulty and pain when swallowing Is patient on ventilator? No Is Patient Ambulatory and/or Out of Bed No REE-([place]-[facility] Je[facility]-confined to bed) [phone] Calculation Used for Recommendations [place] Additional Notes Protein needs: 59-71 g/day (1- 1.2 g/kg/day) Fluid needs: 1 ml/kcal Nutrition Intervention Change Diet Order: Change to Mechanical Soft Cardiac/Consistent CHO Teaching Recipient Patient Learning Readiness Good Teaching Methods Discussion,Handout Response to Teaching Verbalize understanding Education Handouts Provided Heart healthy eating with DM CHO exchange list Barriers to Learning No Barriers RD phone number provided Yes Patient aware of follow up options Yes Goal #1 Meet >85% of energy and protein needs Anticipated Discharge Needs: Cardiac/Consistent CHO Follow-Up By: 08/03/19 Additional Comments Follow up for PO intake and toleration of diet modification
--- NOTE | 2019-08-01 17:21 | Cat Scan Report ---
CT RIGHT HIP WITHOUT CONTRAST INDICATION / CLINICAL INFORMATION: sp fall, R hip pain, cannot walk. TECHNIQUE: Axial CT images were obtained through the pelvis and right hip without contrast. All CT scans at this location are performed using CT dose reduction for ALARA by means of automated exposure control. COMPARISON: Radiograph stated 07/31/19 FINDINGS: BONES: There is a subtle, nondisplaced fracture of the anterior wall of the acetabulum. This fracture is not visible on prior radiographs. There is no other fracture of the right hip, proximal femur, or visualized bony pelvis. Patient is subjectively osteopenic. SACROILIAC JOINTS: Mild degenerative arthrosis. HIP JOINTS: No significant right hip joint effusion. No intra-articular body. Mild degenerative arthr osis of the right hip. LOWER LUMBAR SPINE: Not visualized. ADDITIONAL FINDINGS: No acute abnormality of the soft tissues within the pelvis. IMPRESSION: 1. Subtle, nondisplaced fracture of the anterior wall of the right acetabulum. No other fracture iden tified. 2. Patient is subjectively osteopenic. Signer Name: Tanna Garcia MD Signed: 08/01/2019 5:17 PM Workstation Name: [id number]
--- NOTE | 2019-08-01 17:45 | Vascular Lab Report ---
"DUPLEX DOPPLER ULTRASOUND CAROTID, BILATERAL INDICATION: syncope x3 times. FINDINGS: RIGHT CAROTID: No significant atherosclerotic plaque. Right CCA velocity: 66 cm/sec. Right ICA peak systolic velocity: 100 cm/sec. ICA/CCA PSV Ratio: 1.5. Right Vertebral Artery: Antegrade flow. LEFT CAROTID: No significant atherosclerotic plaque. Left CCA velocity: 91 cm/sec. Left ICA peak systolic velocity: 102 cm/sec. ICA/CCA PSV Ratio: 1.12. Left Vertebral Artery: Antegrade flow. IMPRESSION: 1. Right Internal Carotid Artery: Less than 50% diameter stenosis. 2. Left Internal Carotid Artery: Less than 50% diameter stenosis. Velocity criteria are extrapolated from diameter data as defined by the Society of Radiologists in Ul trasound Consensus Conference, Radiology 2003; 229;340-346. Degree of Stenosis (%) || ICA PSV (cm/sec) || Plaque estimate (%) || ICA/CCA PSV Ratio Normal <125 None <2.0 <50 <125 <50 <2.0 50-69 125-230 50 2.0-4.0 70 but less than 100 >230 50 >4.0 Near occlusion High, low, or none visible variable Total occlusion None visible; no lumen N/A Signer Name: Rigo Lamas MD Signed: 08/01/2019 5:41 PM Workstation Name: [id number]
[2019-08-01] MEDS ORDERED: ENOXAPARIN 40 MG/0.4 ML INJ SUB-Q SCH (22:00)
[2019-08-02] MEDS: MECLIZINE 25 MG TAB PO SCH ×2 (05:08→14:59)
[2019-08-02] MEDS ORDERED: oxyCODONE /ACETAMINOPHEN 5-325MG TAB PO PRN (09:00)
[2019-08-02] MEDS: INSULIN REGULAR, HUMAN 100 UNITS/1 ML SUB-Q SCH ×3 (09:05→18:39)
[2019-08-02] MEDS ORDERED: hydroCHLOROthiazide 25 MG TAB PO SCH (10:00)
[2019-08-02] MEDS ORDERED: atenoloL 25 MG TAB PO SCH (10:00)
--- NOTE | 2019-08-02 10:19 | Progress Note ---
Assessment and Plan Assessment and plan: 68-year-old woman who presents to the hospital after multiple episodes of dizziness and syncope. Syncope/transient autonomic imbalance Most likely due to benign positional vertigo, discussed with neurologist. -She denies focal weakness or slurred speech. Reassured patient that some slurred speech after waking up from a syncopal episode is expected, as patient admits to being drowsy at that time. -Meclizine as needed, advised to drink plenty of water, to rise from sitting and lying positions slowly. And to use hearing aid regularly. She was on a lot of sedating medications which include Tylenol 3, amitriptyline, Flexeril, Benadryl, [place] and tramadol. We will hold all of these -echo pending, carotid Dopplers wnl, orthostatic vital signs wnl Right hip fracture orthopedic surgery consult, PT Hypertensive urgency Continue BP meds, Diabetes Sliding scale DVT prophylaxis Early ambulation and Lovenox History Interval history: Complaining of neck pain, but has full range of motion her neck Complaining of right hip pain, states that she is unable to bear weight on the right lower extremity. Review of systems Constitutional: No fevers, no malaise, no joint pains CVS: No chest pain, no orthopnea, no pedal edema GI: No abdominal pain, no diarrhea, no vomiting, no constipation Respiratory: No shortness of breath, no wheezing, no coughing Hospitalist Physical - Physical exam Narrative exam: General.: Appears well, no distress, nontoxic HEENT: Moist mucous membranes, extraocular muscles intact, no lymphadenopathy Neck: supple Cardiac: S1-S2 heard Lungs: clear to auscultation bilaterally Abdomen: soft , nontender, nondistended, bowel sounds positive Extremities: no edema clubbing or cyanosis Skin: no rash or lesions Neurologic: no gross focal deficits Psych: calm, and cooperative - Constitutional Vitals: Temp Pulse Resp BP Pulse Ox 98.5 F 105 H 16 144/83 89 08/02/19 03:43 08/02/19 03:43 08/02/19 03:43 08/02/19 03:43 08/02/19 03:43 Results - Labs CBC & Chem 7: 07/31/19 20:57 07/31/19 20:57 Labs: Laboratory Last Values WBC 10.2 K/mm3 (4.5-11.0) 07/31/19 20:57 RBC 4.82 M/mm3 (3.65-5.03) 07/31/19 20:57 Hgb 12.7 gm/dl (10.1-14.3) 07/31/19 20:57 Hct 39.8 % (30.3-42.9) 07/31/19 20:57 MCV 83 fl (79-97) 07/31/19 20:57 MCH 26 pg (28-32) L 07/31/19 20:57 MCHC 32 % (30-34) 07/31/19 20:57 RDW 14.8 % (13.2-15.2) 07/31/19 20:57 Plt Count 200 K/mm3 (140-440) 07/31/19 20:57 PT 12.8 Sec. (12.2-14.9) 07/31/19 20:57 INR 0.97 (0.87-1.13) 07/31/19 20:57 Thrombin Time 16.1 Sec. (15.1-19.6) 07/31/19 20:57 Sodium 137 mmol/L (137-145) 07/31/19 20:57 Potassium 4.1 mmol/L (3.6-5.0) 07/31/19 20:57 Chloride 99.9 mmol/L (98-107) 07/31/19 20:57 Carbon Dioxide 23 mmol/L (22-30) 07/31/19 20:57 Anion Gap 18 mmol/L 07/31/19 20:57 BUN 19 mg/dL (7-17) H 07/31/19 20:57 Creatinine 0.8 mg/dL (0.7-1.2) 07/31/19 20:57 Estimated GFR > 60 ml/min 07/31/19 20:57 BUN/Creatinine Ratio 24 % 07/31/19 20:57 Glucose 109 mg/dL (65-100) H 07/31/19 20:57 POC Glucose 97 (70-105) 08/02/19 08:13 Calcium 9.4 mg/dL (8.4-10.2) 07/31/19 20:57 Magnesium 1.80 mg/dL (1.7-2.3) 07/31/19 20:57 Total Bilirubin 0.30 mg/dL (0.1-1.2) 07/31/19 20:57 AST 19 units/L (5-40) 07/31/19 20:57 ALT 19 units/L (7-56) 07/31/19 20:57 Alkaline Phosphatase 72 units/L (35-129) 07/31/19 20:57 Total Creatine Kinase 57 units/L (30-135) 07/31/19 20:57 Troponin T < 0.010 ng/mL (0.00-0.029) 07/31/19 20:57 Total Protein 7.2 g/dL (6.3-8.2) 07/31/19 20:57 Albumin 4.3 g/dL (3.9-5) 07/31/19 20:57 Albumin/Globulin Ratio 1.5 % 07/31/19 20:57 Triglycerides 162 mg/dL (2-149) H 08/01/19 06:26 Cholesterol 126 mg/dL (50-199) 08/01/19 06:26 LDL Cholesterol Direct 64 mg/dL (50-130) 08/01/19 06:26 HDL Cholesterol 54 mg/dL (40-59) 08/01/19 06:26 Cholesterol/HDL Ratio 2.33 % 08/01/19 06:26 TSH 0.653 mlU/mL (0.270-4.200) 07/31/19 20:57 Urine Color Straw (Yellow) 07/31/19 23:30 Urine Turbidity Clear (Clear) 07/31/19 23:30 Urine pH 7.0 (5.0-7.0) 07/31/19 23:30 Ur Specific [place] 1.012 (1.003-1.030) 07/31/19 23:30 Urine Protein <15 mg/dl mg/dL (Negative) 07/31/19 23:30 Urine Glucose (UA) Neg mg/dL (Negative) 07/31/19 23:30 Urine Ketones Neg mg/dL (Negative) 07/31/19 23:30 Urine Blood Neg (Negative) 07/31/19 23:30 Urine Nitrite Neg (Negative) 07/31/19 23:30 Urine Bilirubin Neg (Negative) 07/31/19 23:30 Urine Urobilinogen < 2.0 mg/dL (<2.0) 07/31/19 23:30 Ur Leukocyte Esterase Neg (Negative) 07/31/19 23:30 Urine WBC (Auto) 0.0 /HPF (0.0-6.0) 07/31/19 23:30 Urine RBC (Auto) 1.0 /HPF (0.0-6.0) 07/31/19 23:30 Urine Mucus Few /HPF 07/31/19 23:30 Plasma/Serum Alcohol < 0.01 % (0-0.07) 07/31/19 20:57 Active Medications - Current Medications Current Medications: Generic Name Dose Route Start Last Admin Trade Name Freq PRN Reason Stop Dose Admin Acetaminophen 650 mg 07/31/19 22:43 08/01/19 16:01 Tylenol PO 650 mg Q4H PRN Administration Pain, Mild (1-3) Atenolol 25 mg 08/02/19 10:00 Tenormin PO DAILY [facility] Bisacodyl 10 mg 07/31/19 22:43 Dulcolax [place] QDAY PRN Constipation Cyclobenzaprine HCl 5 mg 08/01/19 14:29 08/01/19 16:01 Flexeril PO 5 mg Q8H PRN Administration Muscle Spasm Dextrose 50 ml 07/31/19 23:16 D50w (25gm) Syringe IV Q30MIN PRN Hypoglycemia Protocol Enoxaparin Sodium 40 mg 08/01/19 22:00 08/01/19 21:29 Enoxaparin SUB-Q 40 mg QDAY@2200 MANDO Administration Hydrochlorothiazide 25 mg 08/02/19 10:00 Hctz PO DAILY [facility] Insulin Human Regular 0 units 08/01/19 07:30 08/02/19 09:05 Humulin R SUB-Q Not Given ACHS [facility] Protocol Magnesium Hydroxide 30 ml 07/31/19 22:43 Milk Of Magnesia PO Q4H PRN Constipation Meclizine HCl 25 mg 08/01/19 14:29 Antivert PO Q8H PRN Vertigo Meclizine HCl 25 mg 08/01/19 16:00 08/02/19 05:08 Antivert PO 25 mg Q8HR MANDO Administration Metoclopramide HCl 10 mg 07/31/19 22:43 Reglan PO Q6H PRN Nausea And Vomiting Morphine Sulfate 4 mg 07/31/19 22:43 08/01/19 09:41 Morphine IV 4 mg Q4H PRN Administration Pain , Severe (7-10) Ondansetron HCl 4 mg 07/31/19 22:43 Zofran IV Q8H PRN Nausea And Vomiting Oxycodone/Acetaminophen 1 tab 08/02/19 09:00 Percocet 5/325 PO Q6H PRN Pain, Moderate (4-6) Promethazine HCl 25 mg 07/31/19 22:43 Phenergan [place] Q6H PRN Nausea And Vomiting Sodium Chloride 10 ml 07/31/19 22:43 Sodium Chloride Flush Syringe 10 Ml IV PRN PRN LINE FLUSH Nutrition/Malnutrition Assess - Dietary Evaluation Nutrition/Malnutrition Findings: Nutrition Notes Start: 08/01/19 10:31 Freq: Status: Active Protocol: Document 08/01/19 10:31 CT (Rec: 08/01/19 11:20 CT [id number]) Co-Sign 08/01/19 10:31 LP Nutrition Notes Need for Assessment generated from: MD Order Initial or Follow up Assessment Current Diagnosis Diabetes,Hypertension,Stroke, Hyperlipidemia Other Pertinent Diagnosis GERD, Arthritis, s/p bilat tubal ligtigation Current Diet Cardiac/Consistent CHO Labs/Tests POC Glu 109 Triglycerides 162 Pertinent Medications Dulcolax Humulin Milk of Janina Mauricio Height 5 ft 2 in Weight 59.4 kg Usual Body Weight 65.771 kg [place] Body Weight (kg) 50.00 BMI 23.9 Intake Prior to Admission Good Weight change and time frame 10% weight loss within 2 months Weight Status Appropriate Subjective/Other Information Consult for nutrition recommendations and diet education. Pt was alert and wanted the education on a cardiac, diabetic diet. Noted that pt has dentures. Pt states some pain when swallowing. Pt report of milk allergy resulting in runny nose, watery eyes and sore throat. Pt states that she usually snacks during the day and only has one large meal in the evening due to not having a large appetite. Pt was given education on heart healthy eating while counting carbohydrates. Percent of energy/protein needs met: 91% energy / 85% protein Burn Absent Trauma Absent GI Symptoms None Difficulty In Swallowing Food Allergy Yes Current % PO Fair (50-74%) Minimum of two criteria No Interpretation of Weight Loss (non- 5% in 1 month severe) #3 Nutrition Diagnosis Food and nutrition-related knowledge deficit Etiology no prior knowledge As Evidenced by Signs and Symptoms pt wanting education on a cardiac, consistent CHO diet #1 Nutrition Diagnosis Inadequate oral intake Etiology Pt consumed 60% of breakfast tray As Evidenced by Signs and Symptoms Pt report of swallowing difficulty and pain when swallowing Is patient on ventilator? No Is Patient Ambulatory and/or Out of Bed No REE-([facility]-confined to bed) [phone] Calculation Used for Recommendations [facility] Additional Notes Protein needs: 59-71 g/day (1- 1.2 g/kg/day) Fluid needs: 1 ml/kcal Nutrition Intervention Change Diet Order: Change to Mechanical Soft Cardiac/Consistent CHO Teaching Recipient Patient Learning Readiness Good Teaching Methods Discussion,Handout Response to Teaching Verbalize understanding Education Handouts Provided Heart healthy eating with DM CHO exchange list Barriers to Learning No Barriers RD phone number provided Yes Patient aware of follow up options Yes Goal #1 Meet >85% of energy and protein needs Anticipated Discharge Needs: Cardiac/Consistent CHO Follow-Up By: 08/03/19 Additional Comments Follow up for PO intake and toleration of diet modification
--- NOTE | 2019-08-02 10:47 | Consultation ---
History of Present Illness Consult date: 08/02/19 Requesting physician: ADRYAN WHIPPLE Consult reason: syncope History of present illness: The pt is a 68 YO female with a past medical history of HTN, DM, HLP, vertigo. She presented for evaluation of recurrent syncope. She states she was standing in her kitchen on 07/31 when she began to feel dizzy and then passed out. She thinks she was on the floor for 5-6 minutes and then her daughter found her. She states that she has had 2 similar syncopal episodes over the past few weeks. She denies any occurrence of chest pain, palpitations, n/v, diaphoresis. She does admit to some lightheadedness if she stands up too quickly. She denies any known prior cardiac issues. She is known to have intermittent vertigo for the past [address] negative. Carotid studies unremarkable. Orthostatics unremarkable. Past History Past Medical History: diabetes, hypertension, hyperlipidemia, other (vertigo) Past Surgical History: Other (Bilateral tubal ligation in the past) Social history: no significant social history Family history: CAD, hypertension Medications and Allergies Allergies Allergy/AdvReac Type Severity Reaction Status Date / Time aspirin Allergy Rash Verified 11/13/13 18:16 lactase [From Dairy Aid] Allergy Unknown Verified 11/13/13 18:16 NSAIDS (Non-Steroidal Allergy Rash Verified 11/13/13 18:16 Anti-Inflamma Home Medications Medication Instructions Recorded Confirmed Last Taken Type Amitriptyline [Elavil] 10 mg PO QHS 11/13/13 08/01/19 1 Day Ago History ~07/31/19 Atenolol [Tenormin] 25 mg PO DAILY 11/13/13 08/01/19 1 Day Ago History ~07/31/19 diphenhydrAMINE [Benadryl] 25 mg PO QHS 11/13/13 08/01/19 1 Day Ago History ~07/31/19 hydroCHLOROthiazide 25 mg PO DAILY 11/13/13 08/01/19 1 Day Ago History [Hydrochlorothiazide] ~07/31/19 traMADoL [Ultram 50 MG tab] 50 mg PO Q6HR PRN #20 tablet 11/13/13 08/01/19 1 Day Ago Rx ~07/31/19 Acetaminophen/Codeine [Tylenol #3] 1 tab PO Q6H PRN #10 tab 06/14/15 08/01/19 1 Day Ago Rx ~07/31/19 Penicillin Vk [Veetids TAB] 500 mg PO Q6HR #28 tablet 06/14/15 08/01/19 1 Day Ago Rx ~07/31/19 HYDROcodone/APAP 5-325 [[place] 1 - 2 each PO Q6HR PRN #14 tablet 11/11/15 08/01/19 1 Day Ago Rx 5/325] ~07/31/19 levoFLOXacin [Levaquin] 750 mg PO QDAY #10 tablet 11/11/15 08/01/19 1 Day Ago Rx ~07/31/19 Cyclobenzaprine [Flexeril] 10 mg PO TID PRN #15 tablet 05/16/16 08/01/19 1 Day Ago Rx ~07/31/19 Active Meds: Active Medications Acetaminophen (Tylenol) 650 mg PO Q4H PRN PRN Reason: Pain, Mild (1-3) Last Admin: 08/01/19 16:01 Dose: 650 mg Documented by: Atenolol (Tenormin) 25 mg PO DAILY [facility] Last Admin: 08/02/19 10:46 Dose: 25 mg Documented by: Bisacodyl (Dulcolax) 10 mg [place] QDAY PRN PRN Reason: Constipation Cyclobenzaprine HCl (Flexeril) 5 mg PO Q8H PRN PRN Reason: Muscle Spasm Last Admin: 08/01/19 16:01 Dose: 5 mg Documented by: Dextrose (D50w (25gm) Syringe) 50 ml IV Q30MIN PRN; Protocol PRN Reason: Hypoglycemia Enoxaparin Sodium (Enoxaparin) 40 mg SUB-Q QDAY@2200 [facility] Last Admin: 08/01/19 21:29 Dose: 40 mg Documented by: Hydrochlorothiazide (Hctz) 25 mg PO DAILY [facility] Last Admin: 08/02/19 10:43 Dose: 25 mg Documented by: Insulin Human Regular (Humulin R) 0 units SUB-Q [facility]; Protocol Last Admin: 08/02/19 09:05 Dose: Not Given Documented by: Magnesium Hydroxide (Milk Of Magnesia) 30 ml PO Q4H PRN PRN Reason: Constipation Meclizine HCl (Antivert) 25 mg PO Q8H PRN PRN Reason: Vertigo Meclizine HCl (Antivert) 25 mg PO Q8HR MANDO Last Admin: 08/02/19 05:08 Dose: 25 mg Documented by: Metoclopramide HCl (Reglan) 10 mg PO Q6H PRN PRN Reason: Nausea And Vomiting Morphine Sulfate (Morphine) 4 mg IV Q4H PRN PRN Reason: Pain , Severe (7-10) Last Admin: 08/01/19 09:41 Dose: 4 mg Documented by: Ondansetron HCl (Zofran) 4 mg IV Q8H PRN PRN Reason: Nausea And Vomiting Oxycodone/Acetaminophen (Percocet 5/325) 1 tab PO Q6H PRN PRN Reason: Pain, Moderate (4-6) Last Admin: 08/02/19 10:44 Dose: 1 tab Documented by: Promethazine HCl (Phenergan) 25 mg [place] Q6H PRN PRN Reason: Nausea And Vomiting Sodium Chloride (Sodium Chloride Flush Syringe 10 Ml) 10 ml IV PRN PRN PRN Reason: LINE FLUSH Review of Systems Constitutional: no weight loss, no weight gain, no fever, no chills, no sweats Ears, nose, mouth and throat: no ear pain, no nose pain, no sinus pressure, no sinus pain Breasts: no deferred Cardiovascular: syncope, lightheadedness, high blood pressure, no chest pain, no orthopnea, no palpitations, no rapid/irregular heart beat, no edema, no shortness of breath, no dyspnea on exertion, no leg edema, no decreased exercise tolerance Respiratory: no cough, no shortness of breath, no dyspnea on exertion, no congestion, no wheezing, no pain on inspiration Gastrointestinal: no abdominal pain, no nausea, no vomiting, no diarrhea, no constipation, no change in bowel habits Genitourinary Female: no pelvic pain, no flank pain, no dysuria, no urinary frequency, no urgency Musculoskeletal: no neck stiffness, no neck pain, no shooting arm pain, no arm numbness/tingling, no low back pain Integumentary: no rash, no pruritis, no redness, no sores, no wounds Neurological: syncope, vertigo, no head injury, no paralysis, no weakness, no parathesias, no numbness, no tingling, no seizures, no tremors, no lack of coordination Psychiatric: no anxiety Endocrine: no cold intolerance, no heat intolerance Hematologic/Lymphatic: no easy bruising, no easy bleeding Allergic/Immunologic: no urticaria, no wheezing Physical Examination Vital Signs Pulse Ox 96 07/31/19 18:35 General appearance: no acute distress HEENT: Positive: PERRL, Normocephaly, Mucus Membranes Moist Neck: Positive: neck supple, trachea midline Cardiac: Positive: Reg Rate and Rhythm, S1/S2 Lungs: Positive: Decreased Breath Sounds Neuro: Positive: Grossly Intact Abdomen: Negative: Tender Skin: Negative: Rash Musculoskeletal: No Pain Extremities: Absent: edema Results 07/31/19 20:57 07/31/19 20:57 - Imaging and Cardiology Echo: report reviewed EKG: report reviewed, image reviewed EKG interpretations - Telemetry EKG Rhythm: Sinus Rhythm - EKG Sinus rhythms and dysrhythmias: sinus rhythm Assessment and Plan Echo reviewed - EF 55-60%, impaired relaxation. Agree with present cardiac regimen. Review of ECG and telemetry shows NSR and sinus tachycardia, no significant arrhythmias. Cont to observe on telemetry. Can consider OP Holter study if symptoms persist. Follow neurology recs. The patient has been seen in conjunction with Dr. Guardado who agrees with the assessment and plan of care. - Patient Problems (1) Recurrent syncope Current Visit: Yes Status: Acute (2) Vertigo Current Visit: Yes Status: Acute (3) HTN (hypertension) Current Visit: Yes Status: Chronic (4) Hyperlipemia Current Visit: Yes Status: Chronic (5) Diabetes mellitus Current Visit: Yes Status: Chronic
[2019-08-02 12:07] VITALS: BP 117/71
--- NOTE | 2019-08-02 13:07 | Consultation ---
History of Present Illness - [facility] Consult date: 08/02/19 Consult reason: fracture History of present illness: 68-year-old female with history of diabetes mellitus, hypertension, hyperlipidemia brought into the emergency room today having had an episode of slurred speech at home and also having a fall. She suddenly felt dizzy and fell backwards hitting the back of her head. She denies any loss of consciousness and denies any blurry vision. She has been having right hip pain since the fall, also c/o posterior neck pain Past History Past Medical History: diabetes, hypertension, hyperlipidemia, other (vertigo) Past Surgical History: Other (Bilateral tubal ligation in the past) Social history: no significant social history Family history: CAD, hypertension Medications and Allergies Allergies Allergy/AdvReac Type Severity Reaction Status Date / Time aspirin Allergy Rash Verified 11/13/13 18:16 lactase [From Dairy Aid] Allergy Unknown Verified 11/13/13 18:16 NSAIDS (Non-Steroidal Allergy Rash Verified 11/13/13 18:16 Anti-Inflamma Home Medications Medication Instructions Recorded Confirmed Last Taken Type Amitriptyline [Elavil] 10 mg PO QHS 11/13/13 08/01/19 1 Day Ago History ~07/31/19 Atenolol [Tenormin] 25 mg PO DAILY 11/13/13 08/01/19 1 Day Ago History ~07/31/19 diphenhydrAMINE [Benadryl] 25 mg PO QHS 11/13/13 08/01/19 1 Day Ago History ~07/31/19 hydroCHLOROthiazide 25 mg PO DAILY 11/13/13 08/01/19 1 Day Ago History [Hydrochlorothiazide] ~07/31/19 traMADoL [Ultram 50 MG tab] 50 mg PO Q6HR PRN #20 tablet 11/13/13 08/01/19 1 Day Ago Rx ~07/31/19 Acetaminophen/Codeine [Tylenol #3] 1 tab PO Q6H PRN #10 tab 06/14/15 08/01/19 1 Day Ago Rx ~07/31/19 Penicillin Vk [Veetids TAB] 500 mg PO Q6HR #28 tablet 06/14/15 08/01/19 1 Day Ago Rx ~07/31/19 HYDROcodone/APAP 5-325 [[place] 1 - 2 each PO Q6HR PRN #14 tablet 11/11/15 08/01/19 1 Day Ago Rx 5/325] ~07/31/19 levoFLOXacin [Levaquin] 750 mg PO QDAY #10 tablet 11/11/15 08/01/19 1 Day Ago Rx ~07/31/19 Cyclobenzaprine [Flexeril] 10 mg PO TID PRN #15 tablet 05/16/16 08/01/19 1 Day Ago Rx ~07/31/19 Active Meds: Active Medications Acetaminophen (Tylenol) 650 mg PO Q4H PRN PRN Reason: Pain, Mild (1-3) Last Admin: 08/01/19 16:01 Dose: 650 mg Documented by: Atenolol (Tenormin) 25 mg PO DAILY [facility] Last Admin: 08/02/19 10:46 Dose: 25 mg Documented by: Bisacodyl (Dulcolax) 10 mg [place] QDAY PRN PRN Reason: Constipation Cyclobenzaprine HCl (Flexeril) 5 mg PO Q8H PRN PRN Reason: Muscle Spasm Last Admin: 08/01/19 16:01 Dose: 5 mg Documented by: Dextrose (D50w (25gm) Syringe) 50 ml IV Q30MIN PRN; Protocol PRN Reason: Hypoglycemia Enoxaparin Sodium (Enoxaparin) 40 mg SUB-Q QDAY@2200 [facility] Last Admin: 08/01/19 21:29 Dose: 40 mg Documented by: Hydrochlorothiazide (Hctz) 25 mg PO DAILY [facility] Last Admin: 08/02/19 10:43 Dose: 25 mg Documented by: Insulin Human Regular (Humulin R) 0 units SUB-Q [facility]; Protocol Last Admin: 08/02/19 09:05 Dose: Not Given Documented by: Magnesium Hydroxide (Milk Of Magnesia) 30 ml PO Q4H PRN PRN Reason: Constipation Meclizine HCl (Antivert) 25 mg PO Q8H PRN PRN Reason: Vertigo Meclizine HCl (Antivert) 25 mg PO Q8HR [facility] Last Admin: 08/02/19 05:08 Dose: 25 mg Documented by: Metoclopramide HCl (Reglan) 10 mg PO Q6H PRN PRN Reason: Nausea And Vomiting Morphine Sulfate (Morphine) 4 mg IV Q4H PRN PRN Reason: Pain , Severe (7-10) Last Admin: 08/01/19 09:41 Dose: 4 mg Documented by: Ondansetron HCl (Zofran) 4 mg IV Q8H PRN PRN Reason: Nausea And Vomiting Oxycodone/Acetaminophen (Percocet 5/325) 1 tab PO Q6H PRN PRN Reason: Pain, Moderate (4-6) Last Admin: 08/02/19 10:44 Dose: 1 tab Documented by: Promethazine HCl (Phenergan) 25 mg [place] Q6H PRN PRN Reason: Nausea And Vomiting Sodium Chloride (Sodium Chloride Flush Syringe 10 Ml) 10 ml IV PRN PRN PRN Reason: LINE FLUSH Physical Examination - Physical exam Narrative exam: right hip - tender at groin, decreased active ROM, distal n/v intact CT scan right hip nondisplaced anterior rim acetabulum Eyes: PERRL ENT: Positive: clear oral mucosa Respiratory effort: normal Respiratory: bilateral: CTA Rhythm: regular Heart Sounds: Positive: S1 & S2 General gastrointestinal: Positive: soft, non-tender, non-distended, normal bowel sounds Integumentary: clear, warm, dry Neurologic: Positive: CNII-XII intact, moves all extremities, gait normal. Negative: focal deficits - Cervical Spine Neck pain: none Tenderness with palpation: none Full ROM: yes ROM: flexion: normal ROM: extension: normal ROM: rotation right: normal ROM: rotation left: normal ROM: lateral flexion right: normal ROM: lateral flexion left: normal - Lumbar Spine Back pain: none Tenderness with palpation: none Appearance: normal Full ROM: yes ROM: flexion: normal ROM: extension: normal ROM: rotation right: normal ROM: rotation left: normal ROM: lateral flexion right: normal ROM: lateral flexion left: normal Assessment and Plan non displaced pelvic fracture recommend conservative treatment : physical therapy for gait training, WBAT Rt LE
[2019-08-02] MEDS: CYCLOBENZAPRINE 10 MG TAB PO PRN (14:59)
--- NOTE | 2019-08-02 15:06 | Discharge Summary ---
Providers - Providers Date of Admission: 08/02/19 08:03 Attending physician: ADRYAN WHIPPLE MD 07/31/19 22:44 Consult to Case Management [CONS] Routine Services Needed at Discharge: Home Health Services Notified:: case technician Consult to Dietitian/Nutrition [CONS] Routine Physician Instructions: Reason For Exam: Reason for Consult: Nutrition Recommendations Reason for Consult: Diet education Occupational Therapy Evaluate and Treat [CONS] Routine Comment: Reason For Exam: Neuro deficits Physical Therapy Evaluation and Treat [CONS] Routine Comment: Reason For Exam: Neuro deficits 07/31/19 22:47 Speech Therapy Evaluation and Treat [CONS] Routine Reason For Exam: swallow eval 07/31/19 23:05 Consult to Physician [CONS] Routine Comment: Consulting Provider: DWIGHT WASHINGTON Physician Instructions: Reason For Exam: r/o cva 08/01/19 13:58 Consult to Cardiology [CONS] Routine Consulting Provider: ABUNDIO ZAMORA Reason For Exam: syncope x3 times 08/02/19 08:02 Consult to Physician [CONS] Routine Comment: Consulting Provider: BHAVNA KIM Physician Instructions: Reason For Exam: r hip fracture 08/02/19 13:08 Physical Therapy Evaluation and Treat [CONS] Routine Comment: Reason For Exam: gait training Weight bearing status?: Full wt bearing Assistive devices?: Yes If so list: [place] Primary care physician: KAYDEN HAILE Hospitalization Condition: Good Hospital course: 68-year-old woman who presents to the hospital after multiple episodes of dizziness and syncope. Syncope/transient autonomic imbalance Most likely due to benign positional vertigo, discussed with neurologist. -She denies focal weakness or slurred speech. Reassured patient that some slurred speech after waking up from a syncopal episode is expected, as patient admits to being drowsy at that time. -Meclizine as needed, advised to drink plenty of water, to rise from sitting and lying positions slowly. And to use hearing aid regularly. She was on a lot of sedating medications which include Tylenol 3, amitriptyline, Flexeril, Benadryl, [place] and tramadol. We will hold all of these -echo showed no significant findings, carotid Dopplers wnl, orthostatic vital signs wnl Right hip fracture orthopedic surgery consult appreciated. Conservative management, devices to aid with gait and physical therapy recommended. Hypertensive urgency Continue BP meds, Diabetes Sliding scale DVT prophylaxis Early ambulation and Lovenox Disposition: DC/[place]-06 HOME [facility]ER [facility] Time spent for discharge: 33 minutes Core Measure Documentation - Palliative Care Palliative Care/ Comfort Measures: Not Applicable - Core Measures Any of the following diagnoses?: none Exam - Constitutional Vitals: Temp Pulse Resp BP Pulse Ox 98.5 F 104 H 18 117/71 94 08/02/19 03:43 08/02/19 11:27 08/02/19 10:44 08/02/19 11:27 08/02/19 11:27 General appearance: Present: no acute distress, well-nourished - EENT Eyes: Present: PERRL ENT: hearing intact, clear oral mucosa - Neck Neck: Present: supple, normal ROM - Respiratory Respiratory effort: normal Respiratory: bilateral: CTA - Cardiovascular Heart Sounds: Present: S1 & S2. Absent: rub, click - Extremities Extremities: pulses symmetrical, No edema Peripheral Pulses: within normal limits - Abdominal General gastrointestinal: Present: soft, non-tender, non-distended, normal bowel sounds Female genitourinary: Present: normal - Integumentary Integumentary: Present: clear, warm, dry - Musculoskeletal Musculoskeletal: gait normal, strength equal bilaterally - Psychiatric Psychiatric: appropriate mood/affect, intact judgment & insight - Neurologic Neurologic: CNII-XII intact, moves all extremities Plan Follow up with: PRIMARY CARE, [Referring] - 3-5 Days Prescriptions: Meclizine [Antivert] 25 mg PO Q8H PRN #30 tablet PRN Reason: Vertigo Cyclobenzaprine [Flexeril 10 MG TAB] 5 mg PO Q8H PRN #30 tablet PRN Reason: Muscle Spasm oxyCODONE /ACETAMINOPHEN [Percocet 5/325 mg] 1 tab PO Q6H PRN #20 tablet PRN Reason: Pain, Moderate (4-6)
--- NOTE | 2019-08-02 16:07 | Progress Note ---
Assessment and Plan 68 YEAR OLD FEMALE WITH HISTORY OF ADVANCED DIABETES, WHO WAS ADMITTED FOR EPISODES OF VERTIGO AND ORTHOSTATIC DIZZINESS. SHE ALSO COMPLAINED OF HEADACHE WHICH WAS OF TENSION TYPE. SHE WAS GIVEN MECLIZINE 25 MG TID AND FLEXERIL AND ACETAMINOPHEN ON PRN BASIS. TODAY SHE LOOKS MUCH BETTER. SHE STATES HER HEADACHE HAS IMPROVED SIGNIFICANTLY.VERTIGO IS MUCH LESS AND CONTINUES TO HAVE MILD ORTHOSTATIC DIZZINESS.SHE WAS ADVISED TO DRINK PLENTY OF WATER AND RISE SLOWLY FROM SITTING AND LYING POSITION, SHE VOICED UNDERSTANDING. SHE HAD EVIDENCE OF MILD DEHYDRATION WHILE SHE WAS ADMITTED. PHYSICAL EXAMINATION ALERT AND APPROPRIATE.. HAS INSIGHT INTO HER CONDITION AND ANSWERS QUESTIONS APPROPRIATELY. HEART-NORMAL RATE AND RHYTHM CAROTIDS-BOTH PALPABLE CRANIAL NERVES-ALL CRANIAL NERVES ARE WITH IN NORMAL LIMIT EXCEPT 8TH CRANIAL NERVES,MORE ON THE RIGHT THAN THE LEFT CAUSING HEARING LOSS. MOTOR- NO ASYMMETRY OF STRENGTH REFLEXES- WITH IN NORMAL LIMIT WITH BILATERAL DOWN GOING TOES. IMPRESSION. 1. BENIGN POSITIONAL VERTIGO 2. TENSION TYPE HEADACHE 3.ORTHOSTATIC LIGHTHEADED NESS PLAN 1. WILL CONTINUE MECLIZINE 25MG PO TID FOR AT LEAST SEVEN DAYS THEN IF SYMPTOMS ARE BETTER CAN REDUCE TO 25 MG BID. 2.DRINK PLENTY OF WATER, AND RISE SLOWLY FROM SITTING AND LYING POSITION. Objective - Vital Sign Vital Signs - 12hr 08/02/19 08/02/19 08/02/19 08:04 10:44 11:27 Pulse Rate 106 H 104 H Respiratory 18 18 Rate Blood Pressure 133/77 117/71 O2 Sat by Pulse 95 94 Oximetry - Laboratory Findings CBC and BMP: 07/31/19 20:57 07/31/19 20:57 Abnormal Lab Findings: Abnormal Labs 07/31/19 07/31/19 08/01/19 20:57 20:57 06:26 MCH 26 L BUN 19 H Glucose 109 H POC Glucose Triglycerides 162 H 08/01/19 08/01/19 08/01/19 08:05 11:50 17:44 MCH BUN Glucose POC Glucose 109 H 208 H 122 H Triglycerides 08/01/19 08/02/19 21:02 11:36 MCH BUN Glucose POC Glucose 207 H 228 H Triglycerides
== END 2019-08-02 19:10 | disposition home health service (06) | DRG 73 ==
LOC: ED 17:41 → 2B-ACE 22:40 → 4A 23:01 → OBSVTOIN 08-02 08:03
PROVIDERS: ADMIT Internal Medicine Geriatric Medicine; ATTEND Internal Medicine
DX: G90.8 Other disorders of autonomic nervous system (principal); S32.414A Nondisplaced fracture of anterior wall of right acetabulum, initial encounter for closed fracture; E11.9 Type 2 diabetes mellitus without complications; W18.39XA Other fall on same level, initial encounter; I10 Essential (primary) hypertension; I16.0 Hypertensive urgency; E78.5 Hyperlipidemia, unspecified; Z82.49 Family history of ischemic heart disease and other diseases of the circulatory system; Z88.8 Allergy status to other drugs, medicaments and biological substances; Z79.1 Long term (current) use of non-steroidal anti-inflammatories (NSAID); Z79.899 Other long term (current) drug therapy; Y93.89 Activity, other specified; Y92.098 Other place in other non-institutional residence as the place of occurrence of the external cause; Y99.8 Other external cause status; Z98.51 Tubal ligation status; Z79.84 Long term (current) use of oral hypoglycemic drugs
CPT/HCPCS: 36415; 70450; 71045; 72125; 72170; 80053; 80061; 80320; 81001; 82550; 82962; 83735; 84443; 84484; 85027; 85610; 85670; 93005; 93010; 93306; 93880; G0378; G0480; J0360; J1650; J1815; J2270

== ENCOUNTER 2020-02-17 19:26 | Emergency (ER) | payer MEDICARE ==
--- NOTE | 2020-02-17 20:28 | Emergency Department Report ---
HPI - General Chief Complaint: Fall Time Seen by Provider: 02/17/20 20:16 - HPI HPI: 69-year-old female presents to the emergency department via EMS from home with a complaint of some tailbone pain after a ground-level fall. The patient says she got dizzy and lost her balance and fell backwards onto her backside. She denies hitting her head or any loss of consciousness but does complain of a generalized headache. She denies any vision change, numbness or paresthesias, slurred speech, or any neurological deficits. She did not take anything for symptoms prior to presentation. She has a past medical history of arthritis, diabetes, GERD, hypertension, high cholesterol. ED Past Medical Hx - Past Medical History Previous Medical History?: Yes Hx Hypertension: Yes Hx Congestive Heart Failure: No Hx Diabetes: Yes Hx GERD: Yes Hx Liver Disease: No Hx Arthritis: Yes Hx Asthma: No Hx COPD: No Hx HIV: No Additional medical history: high cholesterol, arthritis - Surgical History Past Surgical History?: Yes Additional Surgical History: Bilateral tubal ligation. left knee - Social History Smoking Status: Never Smoker Substance Use Type: None - Medications Home Medications: Home Medications Medication Instructions Recorded Confirmed Last Taken Type atenoloL [Tenormin] 25 mg PO DAILY 11/13/13 08/01/19 1 Day Ago History ~07/31/19 hydroCHLOROthiazide 25 mg PO DAILY 11/13/13 08/01/19 1 Day Ago History [Hydrochlorothiazide] ~07/31/19 Cyclobenzaprine [Flexeril 10 MG 5 mg PO Q8H PRN #30 tablet 08/02/19 Unknown Rx TAB] Meclizine [Antivert] 25 mg PO Q8H PRN #30 tablet 08/02/19 Unknown Rx oxyCODONE /ACETAMINOPHEN [Percocet 1 tab PO Q6H PRN #20 tablet 08/02/19 Unknown Rx 5/325 mg] ED Review of Systems ROS: Stated complaint: LOWER BACK/BUTTOCKS PAIN Other details as noted in HPI Comment: All other systems reviewed and negative Constitutional: denies: chills, fever Eyes: denies: eye pain, vision change ENT: denies: ear pain, throat pain Respiratory: denies: cough, shortness of breath Cardiovascular: denies: chest pain, palpitations Gastrointestinal: denies: abdominal pain, vomiting Genitourinary: denies: dysuria, discharge Musculoskeletal: other (Sacral/coccyx pain) Skin: denies: rash, lesions Neurological: headache, other (Dizziness/lightheadedness). denies: numbness, paresthesias Physical Exam - Physical Exam Vital Signs: Vital Signs 02/17/20 20:05 Temperature 98.2 F Pulse Rate 74 Respiratory 20 Rate Blood Pressure 162/65 [Left] O2 Sat by Pulse 97 Oximetry Physical Exam: GENERAL: The patient is well-developed well-nourished. HENT: Normocephalic. Atraumatic. Patient has moist mucous membranes. EYES: Extraocular motions are intact. NECK: Supple. Trachea is midline. CHEST/LUNGS: Clear to auscultation. There is no respiratory distress noted. HEART/CARDIOVASCULAR: Regular. There is no tachycardia. ABDOMEN: Abdomen is soft, nontender. Patient has normal bowel sounds. SKIN: Skin is warm and dry. NEURO: The patient is awake, alert, and cooperative. The patient has no focal neurologic deficits. Normal speech. MUSCULOSKELETAL: There is no tenderness or deformity. There is no limitation range of motion. There is some tenderness to palpation over the lower sacrum and coccyx. BACK: No midline thoracic or lumbar tenderness to palpation, step-off or deformity. ED Course Vital Signs 02/17/20 20:05 Temperature 98.2 F Pulse Rate 74 Respiratory 20 Rate Blood Pressure 162/65 [Left] O2 Sat by Pulse 97 Oximetry ED Medical Decision Making - Lab Data Result diagrams: 02/17/20 20:31 02/17/20 20:31 - EKG Data -: EKG Interpreted by Me EKG shows normal: sinus rhythm, axis (Left axis deviation), intervals, QRS complexes (Right bundle branch block), ST-T waves Rate: normal - EKG Data When compared to previous EKG there are: no significant change Interpretation: unchanged when compared t (08/04/19) - Radiology Data Radiology results: report reviewed, image reviewed interpreted by me: X-ray of the pelvis, sacrum and coccyx do not show any fractures, dislocations, or any other acute processes. CT head/brain wo con INDICATION / CLINICAL INFORMATION: headache, dizziness. TECHNIQUE: All CT scans at this location are performed using CT dose reduction for ALARA by means of automated exposure control. COMPARISON: 07/31/2019 FINDINGS: No intracranial hemorrhage. No abnormal extra-axial fluid collection. The ventricular system and basilar cisterns are normal. No evidence of large territorial infarction or mass effect. Visualized paranasal sinuses, orbits and skeletal structures are normal. IMPRESSION: 1. No acute intracranial abnormality. - Medical Decision Making This patient presents to the emergency department with a complaint of some pain to her tailbone after she had a ground-level fall prior to presentation. Patient appears to have gotten slightly dizzy and lost her balance and fell backwards. She did not hit her head or have any loss of consciousness but does complain of a mild headache as well. A CT scan of the head without contrast was completed that does not show any bleed, shift, mass, ischemia, or any other acute process. On examination she does not have any focal, motor or sensory deficits and cranial nerves are intact. An x-ray was done of the pelvis, sacrum and coccyx that also does not show any fracture, dislocation, or any other acute process. Labs have been unremarkable including CBC, metabolic panel, troponin and TSH. An EKG was done that does not show any morphology consistent with ST elevation AL. Her vital signs been stable throughout her ED course. All the lab and imaging results have been discussed with the patient. The patient was able to ambulate in the emergency department without any apparent instability. For all these reasons patient appears safe for discharge home at this time. She has been given a referral for an orthopedist regarding her sacral and coccygeal pain. She will return to the ER with any worsening of her symptoms or any acute distress. Critical Care Time: No Critical care attestation.: If time is entered above; I have spent that time in minutes in the direct care of this critically ill patient, excluding procedure time. ED Disposition Clinical Impression: Fall from ground level, Coccygeal pain HTN (hypertension) Qualifiers: Hypertension type: essential hypertension Qualified Code(s): I10 - Essential (primary) hypertension Disposition: TO HOME OR SELFCARE Is pt being admited?: No Condition: Stable Instructions: Coccyx Injury (ED), Hypertension (ED), Fall Prevention (ED) Additional Instructions: Please follow-up with a primary care physician in the next few days. I am also giving you a referral for a local orthopedist, Dr. Baer, to follow-up regarding your tailbone pain. Return to the emergency department with any worsening of your symptoms or any acute distress. Referrals: PRIMARY CAREMD [Primary Care Provider] - 2-3 Days BHAVNA BAER MD [Staff Physician] - 2-3 Days Time of Disposition: 22:58
[2020-02-17 21:07] LABS: Basophils % (Auto) 0.5 % (0.0-1.8); Eosinophils % (Auto) 0.5 % (0.0-4.3); Hematocrit 37.8 % (30.3-42.9); Hemoglobin 11.9 gm/dl (10.1-14.3); Lymphocytes # (Auto) 1.2 K/mm3 (1.2-5.4); Lymphocytes % (Auto) 20.3 % (13.4-35.0); Mean Corpuscular HGB Conc 32 % (30-34); Mean Corpuscular Volume 81 fl (79-97); Monocytes # (Auto) 0.4 K/mm3 (0.0-0.8); Monocytes % (Auto) 6.3 % (0.0-7.3); Platelet Count 194 K/mm3 (140-440); Red Blood Count 4.66 M/mm3 (3.65-5.03); Red Cell Distribution Width 14.6 % (13.2-15.2)
--- NOTE | 2020-02-17 21:16 | XRay Report ---
SACRUM AND COCCYX 02/17/2020 INDICATION / CLINICAL INFORMATION: fall, tailbone pain. COMPARISON: None available. FINDINGS: No acute sacrococcygeal fracture. Signer Name: Kevin Sears MD Signed: 02/17/2020 9:11 PM Workstation Name: [id number]
--- NOTE | 2020-02-17 21:16 | XRay Report ---
AP PELVIS 02/17/2020 INDICATION / CLINICAL INFORMATION: fall, pelvic pain. COMPARISON: None available. FINDINGS: No fracture or dislocation. There are mild degenerative changes in the lower lumbar spine and SI joints. Signer Name: Kevin Sears MD Signed: 02/17/2020 9:12 PM Workstation Name: [id number]
[2020-02-17 21:29] LABS: BUN/Creatinine Ratio 25; Blood Urea Nitrogen 20 mg/dL (7-17); Calcium 9.5 mg/dL (8.4-10.2); Hemolysis Index 21
--- NOTE | 2020-02-17 21:30 | Cat Scan Report ---
CT head/brain wo con INDICATION / CLINICAL INFORMATION: headache, dizziness. TECHNIQUE: All CT scans at this location are performed using CT dose reduction for ALARA by means of automated e xposure control. COMPARISON: 07/31/2019 FINDINGS: No intracranial hemorrhage. No abnormal extra-axial fluid collection. The ventricular system and basilar cisterns are normal. No evidence of large territorial infarction or mass effect. Visualized paranasal sinuses, orbits and skeletal structures are normal. IMPRESSION: 1. No acute intracranial abnormality. Signer Name: Kevin Sears MD Signed: 02/17/2020 9:26 PM Workstation Name: [id number]
[2020-02-17] MEDS ORDERED: ACETAMINOPHEN 325 MG TAB PO ONE (23:08)
[2020-02-17 23:19] VITALS: BP 150/65
== END 2020-02-18 00:20 | disposition home or self-care (01) ==
LOC: ED 19:26
DX: M53.3 Sacrococcygeal disorders, not elsewhere classified (principal); I10 Essential (primary) hypertension; R51 Headache; K21.9 Gastro-esophageal reflux disease without esophagitis; E11.9 Type 2 diabetes mellitus without complications; M19.91 Primary osteoarthritis, unspecified site; E78.00 Pure hypercholesterolemia, unspecified; Z98.890 Other specified postprocedural states; Z98.51 Tubal ligation status; Z79.899 Other long term (current) drug therapy; Z88.8 Allergy status to other drugs, medicaments and biological substances; W18.30XA Fall on same level, unspecified, initial encounter; Y93.89 Activity, other specified; Y92.89 Other specified places as the place of occurrence of the external cause; Y99.8 Other external cause status
CPT/HCPCS: 36415; 70450; 72170; 72220; 80048; 84443; 84484; 85025; 93005